=== PATIENT | female | born 1945 | race Native Hawaiian/Other Pacific Islander ===

== ENCOUNTER 2017-04-21 21:26 | Emergency (ER) | payer MEDICARE, OTHER ==
[2017-04-21] MEDS ORDERED: MORPHINE SULFATE 4 MG/ML SYRINGE IV STA (21:46)
--- NOTE | 2017-04-21 21:54 | ED ---
Abdominal Pain HPI - General Chief Complaint: Chest Pain Stated Complaint: SOB/Back & Abdominal Pain Time Seen by Provider: 04/21/17 21:37 Source: patient Mode of arrival: wheelchair Limitations: no limitations - History of Present Illness Initial Comments: This patient is a 71-year-old woman who presents with pain to the left flank that came on she states probably about 5-6 hours ago. She states that it has become severe now. It does radiate around to her left upper quadrant. She states that the pain seems to be better if she remains still but it gets worse if she presses on the areas or if she moves. Also sometimes worse with taking a deep breath. The patient states she had a similar episode about 2 years ago, the pain lasted for about 12 hours and resolved spontaneously. She did not see anyone about this. She denies any related symptoms. MD Complaint: flank pain -: hour(s) Location: L flank Radiation: LUQ Migration to: no migration Severity: severe Quality: aching Consistency: constant Improves With: nothing Worsens With: movement, other (Palpation) - Related Data Home Medications Medication Instructions Recorded Confirmed Aspirin 81 mg PO DAILY 01/31/14 04/21/17 Cholecalciferol [Vitamin D3] 1,000 unit PO DAILY 01/31/14 04/21/17 Enalapril Maleate 10 mg PO DAILY 01/31/14 04/21/17 Levothyroxine Sodium [Synthroid] 50 mcg PO DAILY 01/31/14 04/21/17 Nitroglycerin Sl Tabs [Nitrostat] 0.4 mg PO DIRECTED PRN 01/31/14 04/21/17 Ranitidine HCl 150 mg PO BID 01/31/14 04/21/17 Albuterol Sulfate [Proair Hfa] 2 puff INHALATION Q4HR PRN 02/02/14 04/21/17 Clopidogrel [Plavix] 75 mg PO DAILY 05/21/14 04/21/17 Metoprolol Tartrate [Lopressor] 50 mg PO BID 05/21/14 04/21/17 Simvastatin [Zocor] 20 mg PO HS 05/21/14 04/21/17 Previous Rx's Medication Instructions Recorded Isosorbide Mononitrate ER [Imdur] 30 mg PO HS #30 tab.er.24h 02/03/14 Cyclobenzaprine [Flexeril] 10 mg PO TID #20 tab 05/21/14 Ibuprofen [Motrin] 600 mg PO Q6HR PRN #20 tab 05/21/14 Albuterol Inhaler [Ventolin Hfa 2 puff INHALATION Q4HR PRN #1 07/08/14 Inhaler] inhaler Azithromycin [Zithromax Z-pack] 250 mg PO DIRECTED #6 tab 07/08/14 Ibuprofen [Motrin] 600 mg PO Q8HR PRN #20 tab 04/21/17 Methocarbamol [Robaxin-750] 750 mg PO TID PRN #30 tablet 04/21/17 Allergies Allergy/AdvReac Type Severity Reaction Status Date / Time No Known Allergies Allergy Verified 04/21/17 23:11 Review of Systems ROS Statement: Those systems with pertinent positive or pertinent negative responses have been documented in the HPI. ROS Other: All systems not noted in ROS Statement are negative. Constitutional: Denies: fever, chills Respiratory: Denies: cough, dyspnea, hemoptysis Cardiovascular: Denies: chest pain, palpitations, dyspnea on exertion, orthopnea Gastrointestinal: Reports: as per HPI, abdominal pain. Denies: nausea, vomiting , diarrhea, constipation, melena, hematochezia Genitourinary: Denies: dysuria, hematuria Musculoskeletal: Denies: back pain Skin: Denies: rash Neurological: Denies: headache, weakness, numbness Past Medical History Past Medical History: Coronary Artery Disease (CAD), Chest Pain / Angina, Hyperlipidemia, Hypertension, Myocardial Infarction ([place]) History of Any Multi-Drug Resistant Organisms: None Reported Past Surgical History: Heart Catheterization With Stent, Hysterectomy Past Psychological History: No Psychological Hx Reported Smoking Status: Former smoker Past Alcohol Use History: None Reported Past Drug Use History: None Reported General Exam Limitations: no limitations General appearance: alert, in no apparent distress Head exam: Present: atraumatic, normocephalic Eye exam: Present: normal appearance. Absent: scleral icterus, conjunctival injection ENT exam: Present: normal oropharynx Neck exam: Present: normal inspection Respiratory exam: Present: normal lung sounds bilaterally. Absent: respiratory distress, wheezes, rales, rhonchi, stridor, chest wall tenderness, decreased breath sounds Cardiovascular Exam: Present: regular rate, normal rhythm, normal heart sounds. Absent: systolic murmur, diastolic murmur, rubs, gallop GI/Abdominal exam: Present: soft, tenderness (Left upper quadrant), normal bowel sounds. Absent: distended, guarding, rebound, rigid, mass, pulsatile mass , hernia Extremities exam: Present: normal inspection, normal capillary refill. Absent: pedal edema, calf tenderness Back exam: Present: normal inspection, paraspinal tenderness (Patient has tenderness to the back and the left paraspinal area, probably from around T8-T12 ). Absent: CVA tenderness (R), CVA tenderness (L), vertebral tenderness Neurological exam: Present: alert Skin exam: Present: warm, dry, intact, normal color. Absent: rash Course Vital Signs 04/21/17 04/21/17 21:27 22:45 Temperature 98.7 F Pulse Rate 85 88 Respiratory 18 16 Rate Blood Pressure 168/79 156/73 O2 Sat by Pulse 99 96 Oximetry Medical Decision Making - Lab Data Result diagrams: 04/21/17 21:35 04/21/17 21:35 Lab Results 04/21/17 04/21/17 04/21/17 Range/Units 21:35 21:35 21:35 WBC 7.5 (3.8-10.6) k/uL RBC 4.52 (3.80-5.40) m/uL Hgb 13.3 (11.4-16.0) gm/dL Hct 39.7 (34.0-46.0) % MCV 87.8 (80.0-100.0) fL MCH 29.3 (25.0-35.0) pg MCHC 33.4 (31.0-37.0) g/dL RDW 13.4 (11.5-15.5) % Plt Count 273 (150-450) k/uL Neutrophils % 60 % Lymphocytes % 28 % Monocytes % 6 % Eosinophils % 3 % Basophils % 1 % Neutrophils # 4.5 (1.3-7.7) k/uL Lymphocytes # 2.1 (1.0-4.8) k/uL Monocytes # 0.5 (0-1.0) k/uL Eosinophils # 0.2 (0-0.7) k/uL Basophils # 0.1 (0-0.2) k/uL D-Dimer 0.62 H (<0.60) mg/L FEU Sodium 138 (137-145) mmol/L Potassium 4.3 (3.5-5.1) mmol/L Chloride 101 (98-107) mmol/L Carbon Dioxide 28 (22-30) mmol/L Anion Gap 9 mmol/L BUN 16 (7-17) mg/dL Creatinine 0.85 (0.52-1.04) mg/dL Est GFR (MDRD) Af Amer >60 (>60 ml/min/1.73 sqM) Est GFR (MDRD) Non-Af >60 (>60 ml/min/1.73 sqM) Glucose 110 H (74-99) mg/dL Calcium 9.1 (8.4-10.2) mg/dL Magnesium 1.7 (1.6-2.3) mg/dL Total Bilirubin 0.3 (0.2-1.3) mg/dL AST 22 (14-36) U/L ALT 29 (9-52) U/L Alkaline Phosphatase 62 (38-126) U/L Troponin I (0.000-0.034) ng/mL Total Protein 6.9 (6.3-8.2) g/dL Albumin 3.9 (3.5-5.0) g/dL Amylase 63 (30-110) U/L Lipase 130 (23-300) U/L Urine Color Urine Appearance (Clear) Urine pH (5.0-8.0) Ur Specific [place] (1.001-1.035) Urine Protein (Negative) Urine Glucose (UA) (Negative) Urine Ketones (Negative) Urine Blood (Negative) Urine Nitrite (Negative) Urine Bilirubin (Negative) Urine Urobilinogen (<2.0) mg/dL Ur Leukocyte Esterase (Negative) 04/21/17 04/21/17 Range/Units 21:35 22:40 WBC (3.8-10.6) k/uL RBC (3.80-5.40) m/uL Hgb (11.4-16.0) gm/dL Hct (34.0-46.0) % MCV (80.0-100.0) fL MCH (25.0-35.0) pg MCHC (31.0-37.0) g/dL RDW (11.5-15.5) % Plt Count (150-450) k/uL Neutrophils % % Lymphocytes % % Monocytes % % Eosinophils % % Basophils % % Neutrophils # (1.3-7.7) k/uL Lymphocytes # (1.0-4.8) k/uL Monocytes # (0-1.0) k/uL Eosinophils # (0-0.7) k/uL Basophils # (0-0.2) k/uL D-Dimer (<0.60) mg/L FEU Sodium (137-145) mmol/L Potassium (3.5-5.1) mmol/L Chloride (98-107) mmol/L Carbon Dioxide (22-30) mmol/L Anion Gap mmol/L BUN (7-17) mg/dL Creatinine (0.52-1.04) mg/dL Est GFR (MDRD) Af Amer (>60 ml/min/1.73 sqM) Est GFR (MDRD) Non-Af (>60 ml/min/1.73 sqM) Glucose (74-99) mg/dL Calcium (8.4-10.2) mg/dL Magnesium (1.6-2.3) mg/dL Total Bilirubin (0.2-1.3) mg/dL AST (14-36) U/L ALT (9-52) U/L Alkaline Phosphatase (38-126) U/L Troponin I <0.012 (0.000-0.034) ng/mL Total Protein (6.3-8.2) g/dL Albumin (3.5-5.0) g/dL Amylase (30-110) U/L Lipase (23-300) U/L Urine Color Light Yellow Urine Appearance Clear (Clear) Urine pH 7.5 (5.0-8.0) Ur Specific [place] 1.008 (1.001-1.035) Urine Protein Negative (Negative) Urine Glucose (UA) Negative (Negative) Urine Ketones Negative (Negative) Urine Blood Negative (Negative) Urine Nitrite Negative (Negative) Urine Bilirubin Negative (Negative) Urine Urobilinogen <2.0 (<2.0) mg/dL Ur Leukocyte Esterase Negative (Negative) - EKG Data -: EKG Interpreted by Id EKG shows normal: sinus rhythm, axis (Normal), intervals (Normal), ST-T waves ( Normal) Rate: bradycardia (Rate approximately 57 bpm) Interpretation: other (Possible old inferior infarct.) Disposition Clinical Impression: Back pain Disposition: HOME SELF-CARE Condition: Fair Instructions: Back Pain (ED) Prescriptions: Ibuprofen [Motrin] 600 mg PO Q8HR PRN #20 tab PRN Reason: Pain Methocarbamol [Robaxin-750] 750 mg PO TID PRN #30 tablet PRN Reason: pain Referrals: None,Stated [Primary Care Provider] - 1-2 days
[2017-04-21 22:14] LABS: Basophils # (A) 0.1 k/uL (0-0.2); Basophils % (A) 1 %; CHCM 34.3; Eosinophils # (A) 0.2 k/uL (0-0.7); Eosinophils % (A) 3 %; HCT 39.7 % (34.0-46.0); HDW 2.37; HGB 13.3 gm/dL (11.4-16.0); Luc # (Auto) 0.14; Luc % (Auto) 2; Lymphocytes # (A) 2.1 k/uL (1.0-4.8); Lymphocytes % (A) 28 %; MCH 29.3 pg (25.0-35.0); MCHC 33.4 g/dL (31.0-37.0); MCV 87.8 fL (80.0-100.0); Mean Platelet Volume 7.7; Monocytes # (A) 0.5 k/uL (0-1.0); Monocytes % (A) 6 %; Neutrophils # (A) 4.5 k/uL (1.3-7.7); Neutrophils % (A) 60 %; RBC 4.52 m/uL (3.80-5.40); RDW 13.4 % (11.5-15.5); WBC 7.5 k/uL (3.8-10.6); WBC (Perox) 7.23
[2017-04-21 22:22] LABS: ALT 29 U/L (9-52); AST 22 U/L (14-36); Alkaline Phosphatase 62 U/L (38-126); Amylase 63 U/L (30-110); Anion Gap 9 mmol/L; Blood Urea Nitrogen 16 mg/dL (7-17); Calcium 9.1 mg/dL (8.4-10.2); Carbon Dioxide 28 mmol/L (22-30); Chloride 101 mmol/L (98-107); Glucose 110 mg/dL (74-99); Magnesium 1.7 mg/dL (1.6-2.3); Non-African American GFR(MDRD) >60 (>60 ml/min/1.73 sqM); Potassium 4.3 mmol/L (3.5-5.1); Sodium 138 mmol/L (137-145); Total Bilirubin 0.3 mg/dL (0.2-1.3); Total Protein 6.9 g/dL (6.3-8.2)
[2017-04-21] MEDS ORDERED: RX INFO: IV CONTRAST WAS GIVEN 1 EACH MISC MISCELLANE PRN (22:42)
[2017-04-21 22:49] LABS: Appearance,Urine Clear (Clear); Bilirubin,Urine Negative (Negative); Glucose,Urine (UA) Negative (Negative); Ketones,Urine Negative (Negative); Leukocyte Esterase,Urine Negative (Negative); Nitrite,Urine Negative (Negative); PH, Urine 7.5 (5.0-8.0); Protein,Urine Negative (Negative); Specific Gravity,Urine 1.008 (1.001-1.035); UA Billing (MACRO vs. MICRO) CHEM; Urobilinogen,Urine <2.0 mg/dL (<2.0)
[2017-04-21 22:56] VITALS: RESP 16
--- NOTE | 2017-04-21 23:32 | CT ---
ADDENDUM - Added by Billy Molina MD on 04/21/2017 11:50 PM (-04:00) CTDI is 60.40 mGy and DLP is 408.10 mGy-cm. EXAM: CT Angiography Chest With Intravenous Contrast CLINICAL HISTORY: Reason: Pain TECHNIQUE: Axial computed tomographic angiography images of the chest with intravenous contrast using pulmonary embolism protocol. CTDI is mGy and DLP is mGy-cm. This CT exam was performed using one or more of the following dose reduction techniques: automated exposure control, adjustment of the mA and/or kV according to patient size, and/or use of iterative reconstruction technique. MIP reconstructed images were created and reviewed. COMPARISON: 07/08/2014 FINDINGS: Pulmonary arteries: Unremarkable. No pulmonary embolism. Aorta: No acute findings. No thoracic aortic aneurysm. Lungs: Multiple subcentimeter nodular opacities in the peripheral right middle and upper lobes. Bibasilar atelectasis. Parenchymal scarring in the left lower lobe. Pleural space: Unremarkable. No significant effusion. No pneumothorax. Heart: Unremarkable. No cardiomegaly. No significant pericardial effusion. No evidence of RV dysfunction. Mediastinum: Small hiatal hernia. Bones/joints: No acute fracture. No dislocation. Soft tissues: Unremarkable. Lymph nodes: A few calcified mediastinal lymph nodes are likely related to prior granulomatous disease. IMPRESSION: No evidence of pulmonary embolus. Subcentimeter nodular opacities in the peripheral right middle and upper lobes, favor infectious or inflammatory etiology. Recommend follow-up CT in 3 months after treatment.
[2017-04-22 00:04] VITALS: BP 152/78; PULSE 62; TEMP 98
== END 2017-04-22 00:20 | disposition home or self-care (01) ==
LOC: EC 21:26
DX: M54.9 Dorsalgia, unspecified (principal); R07.9 Chest pain, unspecified; R10.12 Left upper quadrant pain; I10 Essential (primary) hypertension; I25.2 Old myocardial infarction; I25.10 Atherosclerotic heart disease of native coronary artery without angina pectoris; E87.5 Hyperkalemia; Z95.5 Presence of coronary angioplasty implant and graft; Z87.891 Personal history of nicotine dependence; Z79.02 Long term (current) use of antithrombotics/antiplatelets; Z79.82 Long term (current) use of aspirin; Z79.899 Other long term (current) drug therapy
CPT/HCPCS: 99285 ×2; 96374 ×2; 36415; 93005; 85379; 80053; 82150; 83690; 83735; 84484; 85025; 81003; 71275; J2270; Q9967

== ENCOUNTER → 2017-04-30 | Outpatient (CLI) | payer MEDICARE, OTHER ==
--- NOTE | 2017-05-03 08:53 | MM ---
Reason for exam: screening (asymptomatic). Last mammogram was performed 1 year and 4 months ago. History: Patient is postmenopausal. Family history of premenopausal breast cancer in sister. Physical Findings: A clinical breast exam by your physician is recommended on an annual basis and results should be correlated with mammographic findings. MG 3D Screening Mammo W/Cad Bilateral CC and MLO view(s) were taken. Prior study comparison: January 06, 2016, bilateral MG 3d screening mammo w/cad. January 04, 2015, bilateral MG screening mammo w CAD. July 18, 2013, bilateral digital screening mammo w/CAD. There are scattered fibroglandular densities. No suspicious abnormality. ASSESSMENT: Negative, BI-RAD 1 RECOMMENDATION: Routine screening mammogram of both breasts in 1 year.
== END | disposition home or self-care (01) ==
LOC: RADMAMWWP 08:52
PROVIDERS: ATTEND Family Medicine
DX: Z12.31 Encounter for screening mammogram for malignant neoplasm of breast (principal); Z80.3 Family history of malignant neoplasm of breast
CPT/HCPCS: 77063; G0202

== ENCOUNTER 2017-05-24 11:24 | Day surgery (SDC) | payer MEDICARE, OTHER ==
[2017-05-21 12:20] VITALS: BMI 20.1
[~2017-05-24 11:24] MED LIST: LACTATED RINGERS 1,000 ML IV SCH
[2017-05-24 11:52] VITALS: RESP 18; TEMP 97.8
[2017-05-24] MEDS ORDERED: LIDOCAINE 1% 20 ML VIAL (10MG/ML) FOR IV START INTRADERMA ONE (12:01)
[2017-05-24] MEDS ORDERED: LIDOCAINE 1% INJ 10MG/ML (20 ML MDV) ONE (12:41)
[2017-05-24] MEDS ORDERED: PROPOFOL 10 MG/ML 20 ML VIAL IV ONE (12:41)
--- NOTE | 2017-05-24 13:22 | P.PCN ---
Date of Procedure: 05/24/17 Procedure(s) Performed: Procedure: Esophagogastroduodenoscopy and biopsy. Preoperative diagnosis: Dysphagia. Postoperative diagnosis: 1. Sliding hiatal hernia with no obvious esophagitis or complicated reflux disease. 2. Mild gastritis and duodenitis. 3. Multiple biopsies obtained from the duodenum, antrum and esophagus. Preparation and sedation: Was provided by anesthesia. Brief clinical history: The patient is a 71-year-old female who I have recently evaluated in the office regarding dysphagia of around 1 month duration. Denied reflux symptoms in the past, although, she has been having some heartburn lately. No weight loss, bleeding or anemia. This evaluation is to assess for esophagitis, complicated reflux disease. There other pathology. Procedure: With the patient on her left lateral decubitus position and after informed consent and adequate sedation, I passed the Olympus-GIF 160 video upper endoscope through the cricopharyngeus down the esophagus. GE junction was around 36 cm from the incisors and there was a sliding hiatal hernia measuring around 2 cm. The esophagus did not show any obvious erosions, ulcers , strictures or Guadarrama's esophagus. The endoscope was then passed into the stomach which was insufflated with air and inspected in detail including the retroflex view in the cardia. Finally, the endoscope was passed through the pylorus into the duodenum. Pyloric channel did not show any ulcers. Duodenal bulb, post bulbar area and descending duodenum as well as the antrum showed some mottling and erythema consistent with mild gastritis and duodenitis with no ulcers or bleeding. I obtained biopsies from the duodenum, antrum and esophagus then the endoscope was withdrawn. The patient tolerated the procedure well. Plan: The patient was reassured. Will await biopsy results. I will make additional recommendations based on her course and biopsy results. I will keep you updated on her progress.
[2017-05-24 13:29] VITALS: BP 109/68; PULSE 45
== END 2017-05-24 14:17 | disposition home or self-care (01) ==
LOC: ORWHC2ENDO 11:24
DX: K29.50 Unspecified chronic gastritis without bleeding (principal); K20.0 Eosinophilic esophagitis; K29.80 Duodenitis without bleeding; K44.9 Diaphragmatic hernia without obstruction or gangrene; I10 Essential (primary) hypertension; E78.5 Hyperlipidemia, unspecified; I25.10 Atherosclerotic heart disease of native coronary artery without angina pectoris; Z79.1 Long term (current) use of non-steroidal anti-inflammatories (NSAID); Z79.82 Long term (current) use of aspirin; Z79.899 Other long term (current) drug therapy
CPT/HCPCS: 88305; 88342; 43239; J2001; J2704

== ENCOUNTER 2020-05-16 12:09 | Emergency (ER) | payer MEDICARE, OTHER ==
[2020-05-16] MEDS ORDERED: KETOROLAC 15 MG/ML 1 ML VIAL IVP STA (12:28)
--- NOTE | 2020-05-16 12:39 | ED ---
Chest Pain HPI - General Chief Complaint: Chest Pain Stated Complaint: Chest Pain, Heart Palps Time Seen by Provider: 05/16/20 12:19 Source: patient, RN notes reviewed, old records reviewed Mode of arrival: ambulatory Limitations: no limitations - History of Present Illness Initial Comments: This is a 74-year-old female history of heart disease history of hypertension who currently is wearing a heart monitor who presents with complaints of the onset this morning of retrosternal chest pain on the left it does seem to get increase with movements no fevers chills nausea vomiting sweats reported. He feels different than her previous heart events. She denies any trauma heavy lifting or any other symptoms or is elevated at this time. The patient co mplains some pain to her left nipple on her breast. She voices this is part of the area where it hurts. No evidence of any tenderness on examination evidence of any discharge or drainage MD Complaint: chest pain - Related Data Home Medications Medication Instructions Recorded Confirmed Aspirin 81 mg PO DAILY 01/31/14 05/21/17 Enalapril [Vasotec] 5 mg PO DAILY 05/21/17 05/21/17 Metoprolol Tartrate 25 mg PO DAILY 05/21/17 05/21/17 Naproxen 500 mg PO DAILY 05/21/17 05/21/17 Simvastatin 40 mg PO DAILY 05/21/17 05/21/17 Previous Rx's Medication Instructions Recorded Ibuprofen 800 mg PO Q6HR PRN #20 tablet 05/16/20 Allergies Allergy/AdvReac Type Severity Reaction Status Date / Time No Known Allergies Allergy Verified 05/21/17 12:13 Review of Systems ROS Statement: Those systems with pertinent positive or pertinent negative responses have been documented in the HPI. ROS Other: All systems not noted in ROS Statement are negative. EKG Findings - EKG Results: EKG: interpreted by ERMD, sinus rhythm (Normal sinus rhythm of 66 AK interval 120 QRS duration 74 QT since QTC 392/410 evidence of old inferior changes. This is compared with EKG dated 04/20/17 showing identical configuration.) Past Medical History Past Medical History: Coronary Artery Disease (CAD), Chest Pain / Angina, Hyperlipidemia, Hypertension, Myocardial Infarction ([place]) Additional Past Medical History / Comment(s): PATIENT UNSURE IF HAD HI OR NOT, History of Any Multi-Drug Resistant Organisms: None Reported Past Surgical History: Heart Catheterization, Hysterectomy Additional Past Surgical History / Comment(s): PER HX NO HEART STENT PLACED Past Anesthesia/Blood Transfusion Reactions: No Reported Reaction Past Psychological History: No Psychological Hx Reported Smoking Status: Never smoker Past Alcohol Use History: None Reported Past Drug Use History: None Reported General Exam - General Exam Comments Initial Comments: This is a well-developed well-nourished awake alert oriented 3 female Limitations: no limitations General appearance: alert, in no apparent distress, anxious Head exam: Present: atraumatic, normocephalic, normal inspection Eye exam: Present: normal appearance, PERRL, EOMI. Absent: scleral icterus, conjunctival injection, periorbital swelling ENT exam: Present: normal exam, mucous membranes moist Neck exam: Present: normal inspection. Absent: tenderness, meningismus, lymphadenopathy Respiratory exam: Present: normal lung sounds bilaterally, chest wall tenderness (Reproducible tenderness palpation of the left costal sternal margin. No step- off no crepitation. Examination left breast is unremarkable). Absent: respiratory distress, wheezes, rales, rhonchi, stridor Cardiovascular Exam: Present: regular rate, normal rhythm, normal heart sounds. Absent: systolic murmur, diastolic murmur, rubs, gallop, clicks GI/Abdominal exam: Present: soft, normal bowel sounds. Absent: distended, tenderness, guarding, rebound, rigid Extremities exam: Present: normal inspection, full ROM, normal capillary refill. Absent: tenderness, pedal edema, joint swelling, calf tenderness Back exam: Present: normal inspection Neurological exam: Present: alert, oriented X3, CN II-XII intact Psychiatric exam: Present: normal affect, normal mood Skin exam: Present: warm, dry, intact, normal color. Absent: rash Course Vital Signs 05/16/20 12:13 Temperature 98.2 F Pulse Rate 87 Respiratory 19 Rate Blood Pressure 156/92 O2 Sat by Pulse 98 Oximetry Chest Pain MDM - MDM I did review the imaging and report no acute findings. I did reevaluate the patient she has improvement in her pain I did reexamine the patient's left breast that she complains some nipple discomfort. No palpable masses no evidence of erythema or discharge at this time she'll just observe this. She will follow-up with Dr. chavez when necessary the presentation is consistent with costochondritis. Patient will be placed on a short course of anti- inflammatories. Disposition Clinical Impression: Costochondritis, Chest wall syndrome Disposition: HOME SELF-CARE Condition: Good Instructions (If sedation given, give patient instructions): Costochondritis (ED) Additional Instructions: Prescription sent to Your preferred pharmacy Prescriptions: Ibuprofen 800 mg PO Q6HR PRN #20 tablet PRN Reason: Pain Is patient prescribed a controlled substance at d/c from ED?: No Referrals: Anshul Arnold MD [Primary Care Provider] - 1-2 days
[2020-05-16 12:46] LABS: Basophils # (A) 0.1 k/uL (0-0.2); Basophils % (A) 1 %; Eosinophils # (A) 0.2 k/uL (0-0.7); Eosinophils % (A) 2 %; HCT 41.5 % (34.0-46.0); HGB 13.7 gm/dL (11.4-16.0); Lymphocytes # (A) 2.9 k/uL (1.0-4.8); Lymphocytes % (A) 39 %; MCH 28.9 pg (25.0-35.0); MCHC 32.9 g/dL (31.0-37.0); MCV 87.8 fL (80.0-100.0); Mean Platelet Volume 7.9; Monocytes # (A) 0.5 k/uL (0-1.0); Monocytes % (A) 6 %; Neutrophils # (A) 3.7 k/uL (1.3-7.7); Neutrophils % (A) 50 %; Platelet Count 291 k/uL (150-450); RBC 4.73 m/uL (3.80-5.40); WBC 7.4 k/uL (3.8-10.6)
[2020-05-16 12:58] LABS: ALT 12 U/L (4-34); AST 25 U/L (14-36); African American GFR (CKD) >90 (>60 ml/min/1.73 sqM); Albumin 4.5 g/dL (3.5-5.0); Alkaline Phosphatase 65 U/L (38-126); Anion Gap 9 mmol/L; Blood Urea Nitrogen 15 mg/dL (7-17); Calcium 9.7 mg/dL (8.4-10.2); Carbon Dioxide 25 mmol/L (22-30); Chloride 102 mmol/L (98-107); Creatine Kinase 92 U/L (30-135); Glucose 107 mg/dL (74-99); Magnesium 1.8 mg/dL (1.6-2.3); Non-African American GFR(CKD) 86 (>60 ml/min/1.73 sqM); Potassium 4.2 mmol/L (3.5-5.1); Sodium 136 mmol/L (137-145); Total Bilirubin 0.4 mg/dL (0.2-1.3); Total Protein 7.5 g/dL (6.3-8.2)
--- NOTE | 2020-05-16 13:06 | XR ---
EXAMINATION TYPE: XR chest 2V DATE OF EXAM: 05/16/2020 COMPARISON: Chest x-ray and CT chest July 08, 2014 HISTORY: Chest pain. TECHNIQUE: Frontal and lateral views of the chest are obtained. FINDINGS: There is some persistent or recurrent retrocardiac consolidation/atelectasis. Right lung r emains clear. No pleural effusion or pneumothorax is seen bilaterally.. The cardiac silhouette size remains within normal limits. Overlying loop recorder is noted. The osseous structures are intact. IMPRESSION: Persistent or recurrent retrocardiac atelectasis and/or consolidation. No new infiltrate is seen.
[2020-05-16 13:13] LABS: D-Dimer 0.52 mg/L FEU (<0.60); INR 0.9 (<1.2); Prothrombin Time 9.5 sec (9.0-12.0)
[2020-05-16 13:52] VITALS: BP 138/79; PULSE 62; RESP 18; TEMP 98
== END 2020-05-16 13:52 | disposition home or self-care (01) ==
LOC: EC 12:09
DX: R07.89 Other chest pain (principal); R00.2 Palpitations; I25.119 Atherosclerotic heart disease of native coronary artery with unspecified angina pectoris; I10 Essential (primary) hypertension; E78.5 Hyperlipidemia, unspecified; I25.2 Old myocardial infarction; Z79.82 Long term (current) use of aspirin; Z79.899 Other long term (current) drug therapy
CPT/HCPCS: 36415; 93005; 85379; 83880; 80053; 82550; 83735; 84484; 85025; 85610; 85730; 71046; 99285; 96374; J1885

== ENCOUNTER 2020-06-03 21:06 | Observation (INO) | payer MEDICARE, OTHER ==
--- NOTE | 2020-06-03 21:54 | XR ---
EXAMINATION TYPE: XR chest 2V DATE OF EXAM: 06/03/2020 COMPARISON: 05/16/2020 HISTORY: Chest pain TECHNIQUE: FINDINGS: Heart and mediastinum are normal. Lungs are clear. Diaphragm is normal. Bony thorax appears normal. IMPRESSION: Normal chest. No change.
[2020-06-03 22:09] LABS: Basophils # (A) 0.1 k/uL (0-0.2); Basophils % (A) 1 %; Eosinophils # (A) 0.2 k/uL (0-0.7); Eosinophils % (A) 4 %; HCT 39.1 % (34.0-46.0); Lymphocytes # (A) 2.3 k/uL (1.0-4.8); Lymphocytes % (A) 45 %; MCH 28.9 pg (25.0-35.0); MCHC 33.2 g/dL (31.0-37.0); MCV 87.2 fL (80.0-100.0); Mean Platelet Volume 8.2; Monocytes # (A) 0.3 k/uL (0-1.0); Monocytes % (A) 6 %; Neutrophils # (A) 2.2 k/uL (1.3-7.7); Neutrophils % (A) 43 %; Platelet Count 257 k/uL (150-450); RBC 4.48 m/uL (3.80-5.40); WBC 5.2 k/uL (3.8-10.6)
[2020-06-03 22:17] LABS: Albumin 4.3 g/dL (3.5-5.0); Calcium 9.2 mg/dL (8.4-10.2); Magnesium 1.8 mg/dL (1.6-2.3); Total Bilirubin 0.4 mg/dL (0.2-1.3); Total Protein 7.1 g/dL (6.3-8.2)
[2020-06-03 22:24] LABS: INR 0.9 (<1.2); Partial Thromboplastin Time 25.3 sec (22.0-30.0); Prothrombin Time 9.5 sec (9.0-12.0)
[2020-06-03] MEDS ORDERED: MORPHINE SULFATE 4 MG/ML SYRINGE IVP STA (23:23)
[2020-06-03] MEDS ORDERED: NITROGLYCERIN SL TABS 0.4 MG TAB SUBLINGUAL PRN (23:24)
--- NOTE | 2020-06-03 23:31 | ED ---
Chest Pain HPI - General Chief Complaint: Chest Pain Stated Complaint: L Arm Pain, Chest Pain Time Seen by Provider: 06/03/20 21:31 Source: patient Mode of arrival: wheelchair Limitations: no limitations - History of Present Illness Initial Comments: Leila Is a 74-year-old female with a history of CAD status post stenting in the past 2 presents the ER today for evaluation of sudden onset of stabbing left-sided chest pain, lightheadedness, diaphoresis and pain radiating the left shoulder. Patient reports she was in her usual state of health throughout the day today, this evening she had sudden onset of feeling weak all over lightheaded got sweaty and short of breath and had a stabbing pain that she describes as heart pain. Patient reports this was worse than any heart attack she's ever had. Pain resolved prior to arrival she did take aspirin earlier today. - Related Data Home Medications Medication Instructions Recorded Confirmed Aspirin 81 mg PO DAILY 01/31/14 05/21/17 Enalapril [Vasotec] 5 mg PO DAILY 05/21/17 05/21/17 Metoprolol Tartrate 25 mg PO DAILY 05/21/17 05/21/17 Naproxen 500 mg PO DAILY 05/21/17 05/21/17 Simvastatin 40 mg PO DAILY 05/21/17 05/21/17 Previous Rx's Medication Instructions Recorded Ibuprofen 800 mg PO Q6HR PRN #20 tablet 05/16/20 Allergies Allergy/AdvReac Type Severity Reaction Status Date / Time No Known Allergies Allergy Verified 06/03/20 21:14 Review of Systems ROS Statement: Those systems with pertinent positive or pertinent negative responses have been documented in the HPI. ROS Other: All systems not noted in ROS Statement are negative. EKG Findings - EKG Comments: EKG Findings:: EKG was obtained due to complaint of chest pain, EKG was obtained at 2129, rate is 61 rhythm is sinus, normal axis, normal intervals, ID 124, QRS 82, QTC [address] elevations or depressions no evidence of acute ischemia or infarction Past Medical History Past Medical History: Coronary Artery Disease (CAD), Chest Pain / Angina, Hyperlipidemia, Hypertension, Myocardial Infarction ([place]) Additional Past Medical History / Comment(s): PATIENT UNSURE IF HAD [place] History of Any Multi-Drug Resistant Organisms: None Reported Past Surgical History: Heart Catheterization, Hysterectomy Additional Past Surgical History / Comment(s): PER HX NO HEART STENT PLACED Past Anesthesia/Blood Transfusion Reactions: No Reported Reaction Past Psychological History: No Psychological Hx Reported Smoking Status: Never smoker Past Alcohol Use History: None Reported Past Drug Use History: None Reported General Exam - General Exam Comments Initial Comments: Physical Exam GENERAL: Patient is well-developed and well-nourished. Patient is nontoxic and well- hydrated and is in no distress. HENT: Normocephalic, Atraumatic. EYES: PERRL, EOMI PULMONARY: Unlabored respirations. No audible rales rhonchi or wheezing was noted. CARDIOVASCULAR: There is a regular rate and rhythm without any murmurs gallops or rubs. ABDOMEN: Soft and nontender with normal bowel sounds. SKIN: Skin is clear with no lesions or rashes and otherwise unremarkable. : Deferred NEUROLOGIC: Patient is alert and oriented x3. Moving all extremities spontaneously MUSCULOSKELETAL: Normal extremities with adequate strength and full range of motion. No lower extremity swelling or edema. No calf tenderness. PSYCHIATRIC: Normal psychiatric evaluation. Limitations: no limitations Course Vital Signs 06/03/20 06/03/20 21:11 22:15 Temperature 98.4 F Pulse Rate 64 62 Respiratory 18 18 Rate Blood Pressure 144/80 119/82 O2 Sat by Pulse 99 98 Oximetry Chest Pain [facility] the patient was seen and evaluated, history is obtained from the patient Patient with a known coronary artery disease history presenting with chest pain concerning for ACS Patient had aspirin prior to arrival and is currently chest pain-free Labs and imaging were ordered EKG is nonischemic, chest x-ray with no acute findings Initial labs are unremarkable however given the patient's history and prescrip tion of the pain I do feel she is high risk for acute coronary syndrome would benefit from admission possible serial troponins and evaluation by cardiology. Condition is agreeable to this. Upon reevaluation patient is complaining of pain in her back from sitting in the ER caught. Morphine was ordered for pain management. Disposition Clinical Impression: Chest pain Disposition: ADMITTED IP TO THIS HOSP Condition: Stable Referrals: Anshul Arnold MD [Primary Care Provider] - 1-2 days
[2020-06-04 05:09] LABS: Cholesterol 106 mg/dL (<200); HDL Cholesterol 42 mg/dL (40-60); LDL Cholesterol,Calculated 48 mg/dL (0-99); Triglycerides 80 mg/dL (<150)
[2020-06-04] MEDS ORDERED: AMINOPHYLLINE 500 MG/20 ML VIAL IV PRN (08:57)
[2020-06-04] MEDS ORDERED: CAFFEINE CITRATE 60 MG/3 ML VIAL IV PRN (08:57)
[2020-06-04] MEDS ORDERED: REGADENOSON 0.4 MG/5 ML SYRINGE IV ONE (08:57)
[2020-06-04] MEDS ORDERED: ASPIRIN 325 MG TAB PO SCH (09:00)
[2020-06-04] MEDS ORDERED: ASPIRIN 81 MG PO SCH (09:00)
[2020-06-04] MEDS ORDERED: lisinopriL 10 MG TAB PO SCH (09:00)
--- NOTE | 2020-06-04 11:13 | P.CRDCN ---
History of Present Illness History of present illness: HISTORY OF PRESENTING ILLNESS This is a pleasant 74-year-old female past medical history significant for coronary artery disease, inferior wall myocardial infarction 2001, hypertension and dyslipidemia. She follows in the office with Dr. Arnold. In 2001 she had an inferior wall myocardial infarction and underwent stenting of the mid RCA. She underwent repeat cardiac catheterization in 2013 revealing a total occlusion of the RCA with 30% disease noted in the circumflex artery. At that time she underwent successful PCI of the RCA. We have been asked to see in consultation for chest pain. She states last night while sitting down she felt a sharp pain in the left precordial region that was. Brief in nature and associated with feeling mildly lightheaded. She states the pain was very sharp in nature and not similar to how she felt when she had her heart attack in 2001. She had some mild associated dizziness like the room was spinning and also felt mildly diaphoretic. She had no loss of consciousness or near syncope. She denies shortness of breath or palpitations. Most recent stress test performed in the office was a Lexiscan stress test in August 2018 that was negative for reversible ischemia. Most recent echocardiogram obtained March 2020 revealed preserved LV systolic function with ejection fraction 55%, mild eccentric LVH, mild MR and mild TR noted. DIAGNOSTICS EKG reveals sinus mechanism with nonspecific abnormalities noted in the inferior leads with no acute ischemic changes. Chest xray negative for an acute cardiopulmonary process. Laboratory reviewed, CBC unremarkable, sodium 136, potassium 4.0, creatinine 0.77, magnesium 1.8, cardiac enzymes negative 3, NT proBNP 44, LDL 48 and HDL 42. Current cardiac medications include aspirin 81 mg daily, lisinopril 10 mg daily and simvastatin 40 mg at bedtime. REVIEW OF SYSTEMS At the time of my exam: CONSTITUTIONAL: Denies fever or chills. CARDIOVASCULAR: Denies chest pain, shortness of breath, orthopnea, PND or palpitations. RESPIRATORY: Denies cough. GASTROINTESTINAL: Denies abdominal pain, diarrhea, constipation, nausea or vomiting. MUSCULOSKELETAL: Denies myalgias. NEUROLOGIC: Denies numbness, tingling or weakness. ENDOCRINE: Denies fatigue, weight change, polydipsia or polyurina. GENITOURINARY: Denies burning, hematuria or urgency with micturation. HEMATOLOGIC: Denies history of anemia or bleeding. PHYSICAL EXAMINATION Blood pressure 139/83 heart rate 56 afebrile and maintaining oxygen saturation on room air. CONSTITUTIONAL: No apparent distress. HEENT: Head is normocephalic. Pupils are equal, round. Sclerae anicteric. Mucous membranes of the mouth are moist. No JVD. No carotid bruit. CHEST EXAMINATION: Lungs are clear to auscultation. No chest wall tenderness is noted on palpation or with deep breathing. HEART EXAMINATION: Regular rate and rhythm. S1, S2 heard. No murmurs, gallops or rub. ABDOMEN: Soft, nontender. Positive bowel sounds. EXTREMITIES: 2+ peripheral pulses, no lower extremity edema and no calf tenderness. NEUROLOGIC EXAMINATION: Patient is awake, alert and oriented x3. ASSESSMENT Chest pain, an acute event has been ruled out. Coronary artery disease s/p RCA PCIx2 History of inferior wall IN Hypertension Dyslipidemia Former nicotine dependence PLAN An acute coronary event has been ruled out. Perform Lexiscan stress test to assess for reversible cardiac ischemia. Resume aspirin 81 mg daily, simvastatin 40 mg daily and lisinopril 10 mg daily as previously ordered. Check for orthostatic changes. If stress test is abnormal we will consider coronary angiography. Further recommendations to follow based upon clinical course. Thank you kindly for this consultation. Nurse Practitioner note has been reviewed, I agree with a documented findings and plan of care. Patient was seen and examined. Past Medical History Past Medical History: Coronary Artery Disease (CAD), Chest Pain / Angina, Hyperlipidemia, Hypertension, Myocardial Infarction ([place]) Additional Past Medical History / Comment(s): PATIENT UNSURE IF HAD IN History of Any Multi-Drug Resistant Organisms: None Reported Past Surgical History: Heart Catheterization, Hysterectomy Additional Past Surgical History / Comment(s): PER HX NO HEART STENT PLACED Past Anesthesia/Blood Transfusion Reactions: No Reported Reaction Past Psychological History: No Psychological Hx Reported Smoking Status: Never smoker Past Alcohol Use History: None Reported Past Drug Use History: None Reported Medications and Allergies Home Medications Medication Instructions Recorded Confirmed Type Simvastatin 40 mg PO HS 05/21/17 06/03/20 History Ibuprofen 800 mg PO Q6HR PRN #20 tablet 05/16/20 06/03/20 Rx Albuterol Sulfate [Albuterol 2 puff INHALATION RT-Q6H PRN 06/03/20 06/03/20 History Sulfate Hfa] Diclofenac Sodium [Voltaren Gel] 1 applic TOPICAL BID 06/03/20 06/03/20 History Lisinopril [Prinivil] 10 mg PO DAILY 06/03/20 06/03/20 History Nitroglycerin Sl Tabs [Nitrostat] 0.4 mg SL Q5M PRN 06/03/20 06/03/20 History Omeprazole 20 mg PO DAILY PRN 06/03/20 06/03/20 History metFORMIN HCL [Glucophage] 500 mg PO AC-BID 06/03/20 06/03/20 History Allergies Allergy/AdvReac Type Severity Reaction Status Date / Time No Known Allergies Allergy Verified 06/03/20 21:14 Physical Exam Vitals: Vital Signs Temp Pulse Resp BP Pulse Ox 06/04/20 09:16 56 L 18 139/83 98 06/04/20 07:55 49 L 18 98 06/04/20 06:15 98.4 F 69 19 126/71 97 06/03/20 23:50 57 L 18 138/92 98 06/03/20 22:15 62 18 119/82 98 06/03/20 21:11 98.4 F 64 18 144/80 99 Intake and Output 06/03/20 06/04/20 06/04/20 22:59 06:59 14:59 Other: Weight 81.647 kg Results 06/03/20 22:00 06/03/20 22:00 Cardiac Enzymes 06/03/20 06/03/20 06/04/20 Range/Units 22:00 22:00 01:40 AST 24 (14-36) U/L Troponin I <0.012 <0.012 (0.000-0.034) ng/mL 06/04/20 Range/Units 04:43 AST (14-36) U/L Troponin I <0.012 (0.000-0.034) ng/mL Coagulation 06/03/20 Range/Units 22:00 PT 9.5 (9.0-12.0) sec APTT 25.3 (22.0-30.0) sec Lipids 06/04/20 Range/Units 04:43 Triglycerides 80 (<150) mg/dL Cholesterol 106 (<200) mg/dL HDL Cholesterol 42 (40-60) mg/dL CBC 06/03/20 Range/Units 22:00 WBC 5.2 (3.8-10.6) k/uL RBC 4.48 (3.80-5.40) m/uL Hgb 13.0 (11.4-16.0) gm/dL Hct 39.1 (34.0-46.0) % Plt Count 257 (150-450) k/uL Comprehensive Metabolic Panel 06/03/20 Range/Units 22:00 Sodium 136 L (137-145) mmol/L Potassium 4.0 (3.5-5.1) mmol/L Chloride 104 (98-107) mmol/L Carbon Dioxide 24 (22-30) mmol/L BUN 22 H (7-17) mg/dL Creatinine 0.77 (0.52-1.04) mg/dL Glucose 113 H (74-99) mg/dL Calcium 9.2 (8.4-10.2) mg/dL AST 24 (14-36) U/L ALT 13 (4-34) U/L Alkaline Phosphatase 64 (38-126) U/L Total Protein 7.1 (6.3-8.2) g/dL Albumin 4.3 (3.5-5.0) g/dL Current Medications Generic Name Dose Route Start Last Admin Trade Name Freq PRN Reason Stop Dose Admin Aminophylline 100 mg 06/04/20 08:57 Aminophylline 500 Mg/20 Ml Vial IV 06/04/20 23:00 ONCE PRN Patient Response Aspirin 81 mg 06/04/20 09:00 06/04/20 09:17 Aspirin 81 Mg PO 81 mg DAILY STEPHANIE Administration Caffeine Citrate 60 mg 06/04/20 08:57 Caffeine Citrate 60 Mg/3 Ml Vial IV 06/04/20 23:00 ONCE PRN Patient Response Lisinopril 10 mg 06/04/20 09:00 06/04/20 09:17 Lisinopril 10 Mg Tab PO 10 mg DAILY STEPHANIE Administration Nitroglycerin 0.4 mg 06/03/20 23:24 Nitroglycerin Sl Tabs 0.4 Mg Tab SUBLINGUAL Q5M PRN Chest Pain Intake and Output 06/03/20 06/04/20 06/04/20 22:59 06:59 14:59 Other: Weight 81.647 kg 06/03/20 22:00 06/03/20 22:00
--- NOTE | 2020-06-04 12:37 | NM ---
EXAMINATION TYPE: NM stress lexiscan cardiolite DATE OF EXAM: 06/04/2020 COMPARISON: NONE HISTORY: Chest pain TECHNIQUE: After the intravenous administration of 10.69 mCi Tc 99m Sestamibi - Cardiolite resting S PECT images acquired 90 minutes post injection. The patient received 0.4mg Lexiscan, 26.4 mCi Tc 99m Sestamibi - Stress images obtained [address] injection FINDINGS: Review of stress and rest SPECT images demonstrates mild decreased uptake along the inferior left gregorio tricle on stress as compared to rest images. Gated analysis shows some questionable paradoxical apic al wall motion with an estimated left ventricular ejection fraction of 61 %. IMPRESSION: Pharmacologically induced left ventricular myocardial ischemia, consider echocardiographic correlatio n for wall motion.
[2020-06-04 12:57] VITALS: TEMP 98
[2020-06-04] MEDS ORDERED: ISOSORBIDE MONONITRATE ER 30 MG TAB.ER.24H PO SCH (13:00)
--- NOTE | 2020-06-04 13:13 | EST ---
EXERCISE STRESS AGE: 74 SEX: F HT: 5'5" WT: 180 lbs. PROTOCOL: Lexiscan STAGE: N/A DURATION OF EXERCISE: N/A HEART RATE REST: 54 BLOOD PRESSURE REST: 146/74 MAXIMUM HEART RATE ACHIEVED: 81 MAXIMUM BLOOD PRESSURE: 146/74 85% MPHR: N/A 100% MPHR: N/A METS: N/A INDICATIONS: Chest pain. CLINICAL INFORMATION: Baseline EKG shows sinus rhythm, normal axis, normal intervals. Patient was given intravenous Lexiscan as per protocol. Did not have chest pain or diagnostic ST-segment depression. CONCLUSION: 1. Negative stress test by EKG criteria. 2. Cardiolite portion of the stress test will be reported separately. MMODL / IJN: [id number] /
--- NOTE | 2020-06-04 14:11 | P.PN ---
Progress Note - Text Stress test results discussed with the patient and Dr. Arnold. Given her history and the fact that the stress report revealed a preserved LV function, Dr. Arnold does not believe this to be accurate. He requests that the patient be discharged home on maximum medical therapy and follow up with him in the office on Wednesday. This was explained tot he patient in great detail and she is agreeable with the above stated plan. No beta blockers will be prescribed secondary to resting bradycardia. Nurse in ER updated.
--- NOTE | 2020-06-04 14:21 | P.DS ---
Providers Date of admission: 06/03/20 23:24 Attending physician: Nimco Juarez Consults: 06/03/20 23:24 Consult Physician Urgent Consulting Provider: [facility] Consult Reason/Comments: chest pain, known CAD Do you want consulting provider notified?: Yes, Notify in am Primary care physician: Anshul Arnold MD Hospital Course: As mentioned in HPI Patient Condition at Discharge: Stable Plan - Discharge Summary New Discharge Prescriptions: New Isosorbide Mononitrate ER [Imdur] 30 mg PO DAILY #90 tab.er.24h Continue Simvastatin 40 mg PO HS Ibuprofen 800 mg PO Q6HR PRN #20 tablet PRN Reason: Pain metFORMIN HCL [Glucophage] 500 mg PO AC-BID Nitroglycerin Sl Tabs [Nitrostat] 0.4 mg SL Q5M PRN PRN Reason: Chest Pain Lisinopril [Prinivil] 10 mg PO DAILY Diclofenac Sodium [Voltaren Gel] 1 applic TOPICAL BID Omeprazole 20 mg PO DAILY PRN PRN Reason: Heartburn Albuterol Sulfate [Albuterol Sulfate Hfa] 2 puff INHALATION RT-Q6H PRN PRN Reason: Shortness Of Breath Discharge Medication List Simvastatin 40 mg PO HS 05/21/17 [History] Ibuprofen 800 mg PO Q6HR PRN #20 tablet 05/16/20 [Rx] Albuterol Sulfate [Albuterol Sulfate Hfa] 2 puff INHALATION RT-Q6H PRN 06/03/20 [History] Diclofenac Sodium [Voltaren Gel] 1 applic TOPICAL BID 06/03/20 [History] Lisinopril [Prinivil] 10 mg PO DAILY 06/03/20 [History] Nitroglycerin Sl Tabs [Nitrostat] 0.4 mg SL Q5M PRN 06/03/20 [History] Omeprazole 20 mg PO DAILY PRN 06/03/20 [History] metFORMIN HCL [Glucophage] 500 mg PO AC-BID 06/03/20 [History] Isosorbide Mononitrate ER [Imdur] 30 mg PO DAILY #90 tab.er.24h 06/04/20 [Rx] Follow up Appointment(s)/Referral(s): Padmaja Arnold MD [STAFF PHYSICIAN] - 06/10/20 8:30 am Discharge Disposition: HOME SELF-CARE
--- NOTE | 2020-06-04 14:21 | P.HPIM ---
History of Present Illness Patient is a pleasant 74-year-old female with known history of coronary artery disease inferior wall microinfarction 2001 came in with complaints of chest pain on the left side of the chest which is reproducible musculoskeletal. And no associated shadows of breath lightheadedness. Patient chest pain sharp in nature mild to moderate and patient felt little lightheaded. Patient denied any radiation of the chest pain patient denied any significant dizziness or diaphoresis to me and patient the chest pain resolved at this time. Patient had an echo cardiac exam showed normal ejection fraction patient was ruled out acute current syndromes troponins were negative and the EKG showed some nonspecific ST-T wave changes in the inferior leads. Patient underwent stress test which is any clear stress test which was read as possibility of inducible ischemia. Cardiology did releases review these stress test results and the do not believe there is certainly a stress test is accurate as patient had a normal ejection fraction without any wall motion abnormalities and patient's symptomatology is a not consistent with cardiac chest pain rather it's musculoskeletal mostly and resolved. Because of that reason cardiology added him due to her and I recommended follow-up as an outpatient. Review of Systems REVIEW OF SYSTEMS: CONSTITUTIONAL: No fever, no malaise, no fatigue. HEENT: No recent visual problems or hearing problems. Denied any sore throat. CARDIOVASCULAR: No orthopnea, PND, no palpitations, no syncope. PULMONARY: No shortness of breath, no cough, no hemoptysis. GASTROINTESTINAL: No diarrhea, no nausea, no vomiting, no abdominal pain. NEUROLOGICAL: No headaches, no weakness, no numbness. HEMATOLOGICAL: Denies any bleeding or petechiae. GENITOURINARY: Denies any burning micturition, frequency, or urgency. MUSCULOSKELETAL/RHEUMATOLOGICAL: Denies any joint pain, swelling, or any muscle pain. ENDOCRINE: Denies any polyuria or polydipsia. The rest of the 14-point review of systems is negative. Past Medical History Past Medical History: Coronary Artery Disease (CAD), Chest Pain / Angina, Hyperlipidemia, Hypertension, Myocardial Infarction ([place]) Additional Past Medical History / Comment(s): PATIENT UNSURE IF HAD HI History of Any Multi-Drug Resistant Organisms: None Reported Past Surgical History: Heart Catheterization, Hysterectomy Additional Past Surgical History / Comment(s): PER HX NO HEART STENT PLACED Past Anesthesia/Blood Transfusion Reactions: No Reported Reaction Past Psychological History: No Psychological Hx Reported Smoking Status: Never smoker Past Alcohol Use History: None Reported Past Drug Use History: None Reported Medications and Allergies Home Medications Medication Instructions Recorded Confirmed Type Simvastatin 40 mg PO HS 05/21/17 06/03/20 History Ibuprofen 800 mg PO Q6HR PRN #20 tablet 05/16/20 06/03/20 Rx Albuterol Sulfate [Albuterol 2 puff INHALATION RT-Q6H PRN 06/03/20 06/03/20 History Sulfate Hfa] Diclofenac Sodium [Voltaren Gel] 1 applic TOPICAL BID 06/03/20 06/03/20 History Lisinopril [Prinivil] 10 mg PO DAILY 06/03/20 06/03/20 History Nitroglycerin Sl Tabs [Nitrostat] 0.4 mg SL Q5M PRN 06/03/20 06/03/20 History Omeprazole 20 mg PO DAILY PRN 06/03/20 06/03/20 History metFORMIN HCL [Glucophage] 500 mg PO AC-BID 06/03/20 06/03/20 History Isosorbide Mononitrate ER [Imdur] 30 mg PO DAILY #90 tab.er.24h 06/04/20 Rx Allergies Allergy/AdvReac Type Severity Reaction Status Date / Time No Known Allergies Allergy Verified 06/03/20 21:14 Physical Exam Vitals: Vital Signs Temp Pulse Resp BP Pulse Ox 06/04/20 12:57 98.0 F 62 18 144/73 100 06/04/20 09:16 56 L 18 139/83 98 06/04/20 07:55 49 L 18 98 06/04/20 06:15 98.4 F 69 19 126/71 97 06/03/20 23:50 57 L 18 138/92 98 06/03/20 22:15 62 18 119/82 98 06/03/20 21:11 98.4 F 64 18 144/80 99 Intake and Output 06/03/20 06/04/20 06/04/20 22:59 06:59 14:59 Other: Weight 81.647 kg 81.65 kg PHYSICAL EXAMINATION: GENERAL: The patient is alert and oriented x3, not in any acute distress. Well developed, well nourished. HEENT: Pupils are round and equally reacting to light. EOMI. No scleral icterus. No conjunctival pallor. Normocephalic, atraumatic. No pharyngeal erythema. No thyromegaly. CARDIOVASCULAR: S1 and S2 present. No murmurs, rubs, or gallops. PULMONARY: Chest is clear to auscultation, no wheezing or crackles. ABDOMEN: Soft, nontender, nondistended, normoactive bowel sounds. No palpable organomegaly. MUSCULOSKELETAL: No joint swelling or deformity. EXTREMITIES: No cyanosis, clubbing, or pedal edema. NEUROLOGICAL: Gross neurological examination did not reveal any focal deficits. SKIN: No rashes. Results CBC & Chem 7: 06/03/20 22:00 06/03/20 22:00 Labs: Abnormal Lab Results - Last 24 Hours (Table) 06/03/20 Range/Units 22:00 Sodium 136 L (137-145) mmol/L BUN 22 H (7-17) mg/dL Glucose 113 H (74-99) mg/dL Assessment and Plan Plan: 1 chest pain: Rule out acute coronary syndromes appear to be musculoskeletal atypical. Stresses results as mentioned above -Coronary disease with a history of PCI to RCA. Patient will continue with her home medications additionally imbued was added -Hypertension Dyslipidemia Patient will be discharged today as mentioned above.
[2020-06-04 14:35] VITALS: BP 133/78; PULSE 63; RESP 16
[2020-06-04] MEDS ORDERED: ATORVASTATIN 20 MG TAB PO SCH (21:00)
== END 2020-06-04 14:32 | disposition home or self-care (01) ==
LOC: EC 21:06 → 3NCARDOBS 23:24
PROVIDERS: ADMIT Internal Medicine; ATTEND Internal Medicine
DX: R07.89 Other chest pain (principal); R42 Dizziness and giddiness; R61 Generalized hyperhidrosis; R06.02 Shortness of breath; R07.2 Precordial pain; I25.10 Atherosclerotic heart disease of native coronary artery without angina pectoris; E78.5 Hyperlipidemia, unspecified; I10 Essential (primary) hypertension; R00.1 Bradycardia, unspecified; I25.2 Old myocardial infarction; Z79.82 Long term (current) use of aspirin; Z79.899 Other long term (current) drug therapy; Z98.890 Other specified postprocedural states; Z90.710 Acquired absence of both cervix and uterus; Z79.84 Long term (current) use of oral hypoglycemic drugs; Z95.5 Presence of coronary angioplasty implant and graft; Z87.891 Personal history of nicotine dependence; Z79.1 Long term (current) use of non-steroidal anti-inflammatories (NSAID)
CPT/HCPCS: 96374; 99285; 36415; 93005 ×2; 93017; 83880; 80061; 80053; 83735; 84484 ×2; 85025; 85610; 85730; 71046; 78452; G0378 ×2; A9500; J2270; J2785

== ENCOUNTER 2020-06-12 09:26 | Day surgery (SDC) | payer MEDICARE, OTHER ==
[2020-06-10 13:28] VITALS: BMI 27.4
[~2020-06-12 09:26] MED LIST changes: +ALPRAZolam 0.25 MG TAB PO PRN; +ALPRAZolam 0.5 MG TAB PO PRN; +ASPIRIN 325 MG TAB PO STA; -LACTATED RINGERS 1,000 ML IV SCH; +NITROGLYCERIN SL TABS 0.4 MG TAB SUBLINGUAL PRN; +SODIUM CHLORIDE 0.9% 1,000 ML in EMPTY BAG 1 BAG IV ONE
[2020-06-12] MEDS ORDERED: SODIUM CHLORIDE 0.9% 1,000 ML IV ONE (09:45)
[2020-06-12] MEDS ORDERED: ASPIRIN 325 MG TAB PO ONE (09:45)
[2020-06-12] MEDS ORDERED: METOPROLOL TARTRATE 25 MG TAB PO SCH (09:45)
[2020-06-12 09:57] LABS: Glucose,Whole Blood 103 mg/dL (75-99)
[2020-06-12] MEDS: lisinopriL 10 MG TAB PO SCH (10:18)
[2020-06-12] MEDS: ISOSORBIDE MONONITRATE ER 30 MG TAB.ER.24H PO SCH (10:18)
[2020-06-12] MEDS ORDERED: LIDOCAINE 1% INJ 10MG/ML (20 ML MDV) ONE (10:28)
[2020-06-12] MEDS ORDERED: MIDAZOLAM 2 MG/2 ML VIAL IV ONE (11:05)
[2020-06-12] MEDS ORDERED: LIDOCAINE 1% INJ 10MG/ML (20 ML MDV) SQ ONE (11:05)
[2020-06-12] MEDS ORDERED: BIVALIRUDIN BOLUS 250 MG/50 ML IV ONE (11:20)
[2020-06-12] MEDS ORDERED: BIVALIRUDIN 250 MG in SODIUM CHLORIDE 0.9% 50 ML IV ONE (11:21)
[2020-06-12] MEDS: NITROGLYCERIN 1000MCG/10ML SYRINGE INTRACORON ONE ×2 (11:37→11:45)
[2020-06-12] MEDS ORDERED: IOPAMIDOL-370 125ML BTL INJ ONE (11:40)
[2020-06-12] MEDS ORDERED: CLOPIDOGREL 75 MG TAB ONE (11:48)
[2020-06-12] MEDS ORDERED: CLOPIDOGREL 75 MG TAB PO ONE (11:51)
[2020-06-12] MEDS ORDERED: IOPAMIDOL-370 100ML BTL INJ ONE (11:51)
[2020-06-12] MEDS ORDERED: NITROGLYCERIN SL TABS 0.4 MG TAB SUBLINGUAL PRN (12:01)
[2020-06-12] MEDS ORDERED: ZOLPIDEM 5 MG TAB PO PRN (12:01)
[2020-06-12] MEDS ORDERED: ATROPINE SULFATE 0.1 MG/ML 10ML SYRINGE IV PRN (12:01)
[2020-06-12] MEDS ORDERED: RX INFO: IV CONTRAST WAS GIVEN 1 EACH MISC MISCELLANE PRN (12:01)
[2020-06-12] MEDS ORDERED: MAG HYDROX/AL HYDROX/SIMETH 30 ML CUP PO PRN (12:01)
[2020-06-12] MEDS ORDERED: SODIUM CHLORIDE 0.9% 1,000 ML IV SCH (12:15)
[2020-06-12 12:33] LABS: Glucose,Whole Blood 93 mg/dL (75-99)
--- NOTE | 2020-06-12 12:56 | CC ---
CARDIAC CATHETERIZATION REPORT DATE OF SERVICE: 06/12/2020. PROCEDURE: 1. Left heart catheterization and coronary angiography. 2. PTCA and stenting of a restenotic lesion in the proximal RCA with a drug-eluting stent. PERFORMED BY: Dr. Lilian Arnold. Moderate conscious sedation time was 45 minutes. The patient was administered Versed. Oxygen saturation, hemodynamics, and EKG were monitored closely. CLINICAL INFORMATION: Mrs. Leila Thompson is a 74-year-old lady with a known history of type 2 diabetes, hypertension, and hyperlipidemia. She has known CAD, previous stenting of RCA performed initially in 2001 and then she had a restenotic lesion in 2013. She had a chronic total occlusion which was addressed in [facility] in [facility]. Since then, she has done well. Recently she was hospitalized, had an abnormal stress test, therefore was advised cardiac catheterization after due discussion regarding risks, benefits, and options. PROCEDURE NOTE: Under local anesthesia and strict aseptic precautions, a 6-Kiswahili introducer was placed in the right femoral artery. Using standard Massimo catheters, I performed coronary angiography and the same right Massimo catheter was used to check LV pressures but LV gram was not performed. Because patient had significant restenotic lesion in the proximal portion of the stented segment in RCA, which was an in-stent restenosis, I proceeded to perform intervention in the same setting. Following the intervention, the sheath was taken out and Angio-Seal device used to secure hemostasis and she was sent to the room in a stable condition. CARDIAC CATHETERIZATION FINDINGS: Left ventricular end-diastolic pressure was about 5-6 mmHg without any gradient across the aortic valve. CORONARY ANGIOGRAPHY FINDINGS: RIGHT CORONARY ARTERY: This is a dominant vessel. In the proximal portion she has a long stented area, in the proximal 1/3 of the stented area there is a 90% narrowing, then beyond that, there is a smooth area of disease, but flow is fairly brisk distally. This vessel bifurcates into a large PDA and PLV, both of which have minor irregularities. There is a long stented segment, proximal 1/3 of the stented segment has disease and then maximal stenosis is about 90%-95%. Before the stenotic lesion also, there is an area of narrowing as well. LEFT MAIN CORONARY ARTERY: This is a short patent vessel that trifurcates into LAD, circumflex and ramus intermedius. Left main itself is free of significant disease. LEFT ANTERIOR DESCENDING CORONARY ARTERY: This is a good caliber vessel, gives off what seems to be either a high diagonal or ramus. This ramus or high diagonal has about a 30% to 40% narrowing. No significant disease. Fairly decent flow supplies a fair amount of myocardium. The LAD in the midportion has about a 50% lesion located right after the second diagonal branch and another 40% lesion before a good-sized first diagonal branch. However, the 2 lesions in the LAD are about 45% to 50% and do not seem to be critical. There is a lesion after the second diagonal which is a very eccentric lesion and in some views, it does look more than 60%. However, on the stress test, the LAD did not. The LAD distribution did not reveal any ischemia. There are multiple septal branches which are free of significant disease. Mid LAD after the second diagonal, therefore has an eccentric lesion and the second diagonal itself is not very large. LEFT POSTERIOR CIRCUMFLEX CORONARY ARTERY. A small non-nondominant vessel, gives off a single obtuse marginal laterally and gives off a posterolateral branch has minor irregularities no more than 40% to 50%. Left ventriculogram was not performed. FINAL IMPRESSION: This patient has a right dominant system with a restenotic proximal RCA lesion within the previously stented segment of 95%. Dominant vessel. The LAD has a 60% to 55% lesion in the midportion after the second diagonal eccentric in nature. The circumflex is nondominant, has mild irregularities. There is a ramus or high diagonal which has about a 30% to 40% narrowing. LV pressures are normal. There is no gradient across the aortic valve. An LV-gram was not performed. RECOMMENDATIONS: I recommended PCI of RCA and proceeded to perform this in the same setting. PCI PROCEDURE DETAILS: A standard right Massimo guide catheter was used to cannulate the right coronary artery. A whisper straight wire was used to cross the lesion. A 2.75 caliber 15 mm NC Emerge balloon was used to pre-dilate the lesion. A 23 mm long 3.25 caliber Xience stent was deployed with the proximal end of the stent located right at the acute marginal branch. Distal area of the stent was within the previous stented segment well beyond the stenotic lesion. This stent was deployed at 13 atmospheres. I went and postdilated this entire stented area and also distal to the stent with a 3.5 x 15 mm NC Trek balloon. NC emerge balloon sorry. Excellent angiographic result was achieved. Patient did not have chest pain or EKG changes. Angiographic result was excellent with remarkably good flow without any residual stenosis of significance. The sheath was then taken out and Angio-Seal device used to secure hemostasis. Patient received Angiomax bolus and infusion as per protocol. She also received Plavix 600 mg. The patient was sent to the room in stable condition. Findings and details of the procedure and results were discussed with the patient and family. MMODL / IJN: [id number] /
[2020-06-12 16:43] LABS: Glucose,Whole Blood 117 mg/dL (75-99)
[2020-06-12 20:17] LABS: Glucose,Whole Blood 108 mg/dL (75-99)
[2020-06-12] MEDS ORDERED: ATORVASTATIN 80 MG TAB PO SCH (21:00)
[2020-06-13 04:17] VITALS: TEMP 97.8
[2020-06-13 06:18] LABS: Glucose,Whole Blood 115 mg/dL (75-99)
[2020-06-13 06:46] LABS: Basophils % (A) 1 %; Eosinophils # (A) 0.2 k/uL (0-0.7); Eosinophils % (A) 4 %; HCT 38.7 % (34.0-46.0); HGB 12.7 gm/dL (11.4-16.0); Lymphocytes # (A) 1.5 k/uL (1.0-4.8); Lymphocytes % (A) 36 %; MCH 29.8 pg (25.0-35.0); MCHC 32.8 g/dL (31.0-37.0); Mean Platelet Volume 8.1; Monocytes # (A) 0.2 k/uL (0-1.0); Monocytes % (A) 6 %; Neutrophils # (A) 2.1 k/uL (1.3-7.7); Neutrophils % (A) 52 %; Platelet Count 228 k/uL (150-450); RBC 4.26 m/uL (3.80-5.40); WBC 4.1 k/uL (3.8-10.6)
[2020-06-13 07:02] LABS: African American GFR (CKD) >90 (>60 ml/min/1.73 sqM); Anion Gap 6 mmol/L; Blood Urea Nitrogen 12 mg/dL (7-17); Calcium 9.2 mg/dL (8.4-10.2); Carbon Dioxide 26 mmol/L (22-30); Chloride 107 mmol/L (98-107); Glucose 119 mg/dL (74-99); Non-African American GFR(CKD) 87 (>60 ml/min/1.73 sqM); Potassium 4.2 mmol/L (3.5-5.1); Sodium 139 mmol/L (137-145)
[2020-06-13] MEDS ORDERED: METOPROLOL TARTRATE 12.5 MG TAB PO SCH (09:00)
[2020-06-13] MEDS ORDERED: CLOPIDOGREL 75 MG TAB PO SCH (09:00)
[2020-06-13] MEDS ORDERED: ASPIRIN 81 MG PO SCH (09:00)
[2020-06-13 09:25] VITALS: BP 143/87; PULSE 67; RESP 18
--- NOTE | 2020-06-13 11:03 | DS ---
DISCHARGE SUMMARY DATE OF ADMISSION: 06/12/2020 DATE OF DISCHARGE: 06/13/2020 DIAGNOSES: Unstable angina, type 2 diabetes, hypertension, hypercholesterolemia. Mrs. Leila Thompson was admitted for elective cardiac cath because of recent abnormal stress test. She is known to have previous PCI of RCA in 2001 and subsequently in 2013 and at that time in 2013, this was a chronic total occlusion. Because of symptoms of chest discomfort, she was hospitalized and had abnormal stress test, was brought back for cardiac cath after due discussion regarding risks, benefits, and options. Coronary angiography revealed that she had a 50% to 55% mid LAD lesion, which was progression of disease with multiple other areas of 30% to 40% in the LAD. Circumflex was relatively free of significant disease. The diagonal branch had mild to moderate disease. RCA which was stented in the past had a significant restenotic lesion within the proximal 1/3 of the stent of 95%. This was addressed with a new 3.25 caliber drug-eluting stent and post-dilated with a 3.5 noncompliant balloon. Excellent angiographic result was achieved. Postprocedure course was uneventful. She is asymptomatic, resting comfortably. She has some asymptomatic bradycardia. I am recommending 12.5 mg of metoprolol tartrate to be given if the heart rate is more than 60. She will be on aspirin and Plavix combination. Importance of dual antiplatelet therapy was discussed with the patient. She will be discharged on aspirin, Plavix, atorvastatin 80 mg daily instead of simvastatin and metoprolol tartrate with the guidelines as indicated above. Discharge instructions regarding activity, diet and medications were given. I will see the patient on Wednesday at 8:30 am. MMCHANELLE / SUSANAN: [id number] /
[2020-06-13] MEDS: ISOSORBIDE MONONITRATE ER 30 MG TAB.ER.24H PO SCH (11:09)
[2020-06-13] MEDS: lisinopriL 10 MG TAB PO SCH (11:09)
== END 2020-06-13 11:33 | disposition home or self-care (01) ==
LOC: CATHCVL 09:26 → 3NCARDOBS 11:50 → CATHCVL 06-13 11:33
PROVIDERS: ATTEND Internal Medicine Interventional Cardiology
DX: I25.110 Atherosclerotic heart disease of native coronary artery with unstable angina pectoris (principal); T82.855A Stenosis of coronary artery stent, initial encounter; I25.82 Chronic total occlusion of coronary artery; I25.2 Old myocardial infarction; I10 Essential (primary) hypertension; E11.9 Type 2 diabetes mellitus without complications; E78.5 Hyperlipidemia, unspecified; E78.00 Pure hypercholesterolemia, unspecified; Z90.710 Acquired absence of both cervix and uterus; Z79.84 Long term (current) use of oral hypoglycemic drugs; Z79.82 Long term (current) use of aspirin; Z79.02 Long term (current) use of antithrombotics/antiplatelets; Z79.899 Other long term (current) drug therapy; Z87.891 Personal history of nicotine dependence
CPT/HCPCS: 93458; 80048; 85025; C9600; C1769 ×4; C1760; C1887; C1725; C1894; C1874; J2250; J2001; J0583; Q9967 ×2

== ENCOUNTER 2020-09-07 10:25 | Emergency (ER) | payer MEDICARE, OTHER ==
[2020-09-07 10:33] VITALS: RESP 18
[2020-09-07] MEDS ORDERED: FLUORESCEIN STRIPS 1 MG STRIP LEFT EYE ONE (10:39)
[2020-09-07] MEDS ORDERED: PROPARACAINE 0.5% OPHTH DROPS 15 ML BTL LEFT EYE STA (10:41)
--- NOTE | 2020-09-07 10:42 | ED ---
Eye Problem HPI - General Chief complaint: Eye Problems Stated complaint: Eye Problem Time Seen by Provider: 09/07/20 10:34 Source: patient Mode of arrival: ambulatory Limitations: no limitations - History of Present Illness Initial comments: 74-year-old female with history of recent cataract surgery of the left eye September [address] Hudson. Patient states that she did not experience much redness/discomfort following the surgery and yesterday her eye felt "normal". This morning she woke up with blurred vision, light sensitivity and notable redness. Patient denies drainage. Denies history concerning for foreign body. Pt denies nausea, vomiting, headaches, or temporal tenderness. Patient denies double vision, flashes of light or floaters. Patient denies fever, URI symptoms. Denies rashes of the face/scalp or pain. Patient states she has been taking the ciprofloxacin 0.3% ophthalmic drops 3x a day as prescribed by her enrollment nurse. - Related Data Home Medications Medication Instructions Recorded Confirmed Diclofenac Sodium [Voltaren Gel] 1 applic TOPICAL BID PRN 06/03/20 09/07/20 Lisinopril [Prinivil] 10 mg PO DAILY 06/03/20 09/07/20 Omeprazole 20 mg PO DAILY PRN 06/03/20 09/07/20 metFORMIN HCL [Glucophage] 500 mg PO AC-BID 06/03/20 09/07/20 Ciprofloxacin Ophth Soln [Cipro 1 drops LEFT EYE TID 09/07/20 09/07/20 0.3% Ophth Soln] Metoprolol Tartrate [Lopressor] 12.5 mg PO DAILY 09/07/20 09/07/20 Previous Rx's Medication Instructions Recorded Isosorbide Mononitrate ER [Imdur] 30 mg PO DAILY #90 tab.er.24h 06/04/20 Atorvastatin [Lipitor] 80 mg PO DAILY #90 tab 06/13/20 Clopidogrel [Plavix] 75 mg PO DAILY #90 tablet 06/13/20 Nitroglycerin Sl Tabs [Nitrostat] 0.4 mg SUBLINGUAL Q5M PRN #25 tab 06/13/20 Cyclopentolate 1% Ophth Soln 1 drops LEFT EYE TID 7 Days #3 ml 09/07/20 [Cyclogyl 1% Ophth Soln] Moxifloxacin [Vigamox 0.3%] 1 drop LEFT EYE Q2H 7 Days #3 ml 09/07/20 Prednisolone Acetate/Pf 1 drop LEFT EYE Q2H 7 Days #3 ml 09/07/20 [Prednisolone Acet 1% Eye Drop] Allergies Allergy/AdvReac Type Severity Reaction Status Date / Time No Known Allergies Allergy Verified 09/07/20 11:22 Review of Systems ROS Statement: Those systems with pertinent positive or pertinent negative responses have been documented in the HPI. ROS Other: All systems not noted in ROS Statement are negative. Past Medical History Past Medical History: Coronary Artery Disease (CAD), Chest Pain / Angina, Hyperlipidemia, Hypertension, Myocardial Infarction ([place]) Additional Past Medical History / Comment(s): PATIENT UNSURE IF HAD [place] Last Myocardial Infarction Date:: 1999 History of Any Multi-Drug Resistant Organisms: None Reported Past Surgical History: Heart Catheterization, Hysterectomy Additional Past Surgical History / Comment(s): stent rca 2001, ptba rca 2113, stent rca by CORY Arnold 06/09/2020, catract Past Anesthesia/Blood Transfusion Reactions: No Reported Reaction Past Psychological History: No Psychological Hx Reported Smoking Status: Former smoker Past Alcohol Use History: None Reported Past Drug Use History: None Reported - Past Family History Mother Additional Family Medical History / Comment(s): does not know. states was very small Father Family Medical History: No Reported History Additional Family Medical History / Comment(s): patient does not know states was very small General Exam - General Exam Comments Initial Comments: General: The patient is awake and alert, in no distress, and does not appear acutely ill. Eye: +3 mm pupils are equal, round and reactive to light, extra-ocular movements are intact. No pain with EOM. NO external swelling. Both direct and consensual photophobia. No APD appreciated. No nystagmus. There is left eye conjunctiva injection it is not sparing the limbus, right eye no injection. Appreciate opacity of the cornea. No signs of icterus. Intraocular pressure left eye 11. OS 20/200, OD 20/50 with corrective lenses (glasses) Ears, nose, mouth and throat: There are moist mucous membranes and no oral lesions. Musculoskeletal: Normal ROM, no tenderness. Strength 5/5. Sensation intact. Pulses equal bilaterally 2+. Neurological: A&O x 3. CN II-XII intact, There are no obvious motor or sensory deficits. Coordination appears grossly intact. Speech is normal. Skin: Skin is warm and dry and no rashes or lesions are noted. No scalp or facial lesions no temporal tenderness. Psychiatric: Cooperative, appropriate mood & affect, normal judgment. Limitations: no limitations Course Vital Signs 09/07/20 09/07/20 09/07/20 10:29 12:42 13:44 Temperature 97.9 F 98.2 F Pulse Rate 54 L 53 L 55 L Respiratory 18 18 18 Rate Blood Pressure 140/72 132/86 137/64 O2 Sat by Pulse 98 100 100 Oximetry Medical Decision Making - Medical Decision Making 74yo female presenting for cc of left eye pain, recent cataract surgery. Patient the evaluated in the emergency department by ophthalmology-Dr. Lantigua aqueous humor sample obtained. (-) gram stain (-). he gave all antibiotic recommendations he will see patient for follow-up tomorrow at 8 AM in his office. i ordered outpatient prescription (verbal orders). he is agreeable to discdharge with close outpatient f/u. pt discharged appearing well.Dr. Warner agreeable to care plan. Disposition Clinical Impression: Endophthalmitis, Left eye pain, Conjunctival injection Disposition: HOME SELF-CARE Condition: Good Additional Instructions: Please use medication as discussed. Please follow-up with Dr. Lantigua in office tomorrow as discussed, please administer drops as discussed-return for worsening symptoms/fevers to the ER. Please return to emergency room if the symptoms increase or worsen or for any other concerns. Prescriptions: Cyclopentolate 1% Ophth Soln [Cyclogyl 1% Ophth Soln] 1 drops LEFT EYE TID 7 Days #3 ml Prednisolone Acetate/Pf [Prednisolone Acet 1% Eye Drop] 1 drop LEFT EYE Q2H 7 Days #3 ml Moxifloxacin [Vigamox 0.3%] 1 drop LEFT EYE Q2H 7 Days #3 ml Is patient prescribed a controlled substance at d/c from ED?: No Referrals: Trey Hawley MD [Primary Care Provider] - 1-2 days Edy Lantigua MD [STAFF PHYSICIAN] - 09/08/20 Time of Disposition: 12:53
[2020-09-07] MEDS ORDERED: PHENYLEPHRINE 2.5% OPHTH DRP 2ML LEFT EYE STA (11:15)
[2020-09-07] MEDS ORDERED: CYCLOPENTOLATE 1% OPHTH SOLN 2 ML BTL LEFT EYE STA (11:17)
[2020-09-07] MEDS ORDERED: FLUORESCEIN STRIPS 1 MG STRIP BOTH EYES ONE (12:27)
[2020-09-07 12:45] VITALS: TEMP 98.2
[2020-09-07] MEDS ORDERED: MOXIFLOXACIN HCL 0.5% DROPS 3 ML BTL LEFT EYE ONE (12:50)
--- NOTE | 2020-09-07 13:04 | P.CON ---
Consult Note - . Consult date: 09/07/20 Assessment/Plan:: This is a 74 y/o who underwent cataract surgery on left eye 5 days ago. Apparently vision was good and eye comfortable immediately after surgery until this morning early. She states that the vision in the eye is poor and was aching about 10/10. Ahe admits to photophobia There is no discharge or any known scratch of the eye. She presented to ER with red eye and poor vision. Va: 20/200 OS, IOP 13 OD, 11 OS by [facility] External: unremarkable except for the mild squinting of the left eye conj: mild injection on left to limbus Cornea: clear with mild endothelial wrinkling, no leaks AC: 1+ cell and 2+ flare Lens: pseudophakic Vitreous: no overt cells, with mild vitreous veils and PVD ONH: normal pink, healthy, C:D 0.30, fundus: circulation is normal, A:V 0.67, Mac: quiet, +FLR Procedure: AC tap through paracentesis 0.15 ml obtained and sent for gram, ae/anaerobic cultures. A: endophthalmitis left eye, cannot appreciate TASS vs infectious endophthalmitis for the moment, awaiting labs. P: will change medications to moxifloxacin every 2 hours swhile awake and twice at night, Prednisolone acetate every 2 hours while awake and add 1% cyclopentolate 3 times daily. Will follow on office in AM and will review labs at that time.
[2020-09-07 13:45] VITALS: BP 137/64; PULSE 55
[2020-09-07] MEDS ORDERED: prednisoLONE ACETATE 1% OPHTH DROPS 5 ML BTL LEFT EYE SCH (14:00)
== END 2020-09-07 14:04 | disposition home or self-care (01) ==
LOC: EC 10:25
DX: H44.002 Unspecified purulent endophthalmitis, left eye (principal); H11.89 Other specified disorders of conjunctiva; I10 Essential (primary) hypertension; I20.9 Angina pectoris, unspecified; Z79.899 Other long term (current) drug therapy; Z95.5 Presence of coronary angioplasty implant and graft; Z87.891 Personal history of nicotine dependence; Z90.710 Acquired absence of both cervix and uterus; Z98.42 Cataract extraction status, left eye
CPT/HCPCS: 87070; 87075; 87205; 99284

== ENCOUNTER → 2022-04-16 | Outpatient (CLI) | payer MEDICARE, OTHER ==
--- NOTE | 2022-04-17 04:39 | MR ---
EXAMINATION TYPE: MR brain wo con DATE OF EXAM: 04/16/2022 COMPARISON: None HISTORY: Memory loss. Multiplanar multiecho imaging of the brain performed with no contrast. Ventricles of normal size. Diffusion images show no evidence of an acute infarct. There is cerebral c ortical atrophy. There is no mass effect or midline shift. No sign of intracranial hemorrhage. There is coalescent increased signal in the periventricular white matter on the T2 and FLAIR images. This m easures up to 1.5 cm in thickness. There are multiple foci of increased signal at the yates-white justyn er junction of both cerebral hemispheres measuring up to 1 cm. In total number is partially 20 Corpus callosum is intact. The brainstem is intact. No evidence of posterior fossa mass. Sella turcic a appears normal. No evidence of orbital mass. IMPRESSION: Mild atrophy. Extensive white matter changes that could be microvascular ischemia and demyelinating d isease. No evidence of cortical infarct.
== END | disposition home or self-care (01) ==
LOC: RADMRIMAIN 17:15
PROVIDERS: ATTEND Psychiatry & Neurology Neurology
DX: G31.9 Degenerative disease of nervous system, unspecified (principal); R41.3 Other amnesia
CPT/HCPCS: 70551

== ENCOUNTER 2022-05-11 17:45 | Emergency (ER) | payer MEDICARE, OTHER ==
[2022-05-11 17:50] VITALS: BP 163/93; PULSE 70; RESP 16; TEMP 98
[2022-05-11 18:27] LABS: Basophils # (A) 0.1 k/uL (0-0.2); Basophils % (A) 1 %; Eosinophils # (A) 0.1 k/uL (0-0.7); Eosinophils % (A) 2 %; HCT 40.4 % (34.0-46.0); HGB 13.4 gm/dL (11.4-16.0); Lymphocytes # (A) 1.5 k/uL (1.0-4.8); Lymphocytes % (A) 33 %; MCH 29.5 pg (25.0-35.0); MCHC 33.1 g/dL (31.0-37.0); MCV 88.9 fL (80.0-100.0); Mean Platelet Volume 8.2; Monocytes # (A) 0.3 k/uL (0-1.0); Monocytes % (A) 7 %; Neutrophils # (A) 2.6 k/uL (1.3-7.7); Neutrophils % (A) 56 %; Platelet Count 252 k/uL (150-450); RBC 4.55 m/uL (3.80-5.40); RDW 12.5 % (11.5-15.5); WBC 4.6 k/uL (3.8-10.6)
[2022-05-11 18:36] LABS: INR 0.9 (<1.2); Partial Thromboplastin Time 25.1 sec (22.0-30.0); Prothrombin Time 10.1 sec (9.0-12.0)
[2022-05-11 18:38] LABS: ALT 18 U/L (4-34); AST 27 U/L (14-36); African American GFR (CKD) >90 (>60 ml/min/1.73 sqM); Albumin 4.3 g/dL (3.5-5.0); Alkaline Phosphatase 79 U/L (38-126); Anion Gap 10 mmol/L; Blood Urea Nitrogen 11 mg/dL (7-17); Calcium 9.2 mg/dL (8.4-10.2); Carbon Dioxide 27 mmol/L (22-30); Chloride 102 mmol/L (98-107); Glucose 106 mg/dL (74-99); Magnesium 1.7 mg/dL (1.6-2.3); Non-African American GFR(CKD) 84 (>60 ml/min/1.73 sqM); Potassium 3.7 mmol/L (3.5-5.1); Sodium 139 mmol/L (137-145); Total Bilirubin 0.4 mg/dL (0.2-1.3); Total Protein 7.1 g/dL (6.3-8.2)
--- NOTE | 2022-05-11 18:40 | XR ---
EXAMINATION TYPE: XR chest 2V DATE OF EXAM: 05/11/2022 COMPARISON: 06/03/2020 HISTORY: Chest pain TECHNIQUE: 2 views FINDINGS: There is mild thoracic dextroscoliosis. Heart size is normal. There are no hilar masses. Co stophrenic angles are clear. Bony thorax is intact IMPRESSION: No active cardiopulmonary disease. No adverse change compared to exam
--- NOTE | 2022-05-11 19:37 | ED ---
Chest Pain HPI - General Chief Complaint: Chest Pain Stated Complaint: Chest pain Time Seen by Provider: 05/11/22 19:18 Source: patient Mode of arrival: wheelchair Limitations: no limitations - History of Present Illness Initial Comments: This 76-year-old female presents with a complaint of some left-sided chest pain. She states that this just occurred earlier today. It was associated with some palpitations. It occurred at rest. She relates that it did radiate up into her left shoulder. She denies any leg pain or swelling or history of DVT or PE. She does have a long history of coronary artery disease. She states that she has previously had open heart surgery. She has had multiple cardiac stents as well. She tried a sublingual nitroglycerin today and this seemed to help. She does not normally have to take sublingual nitroglycerin and states that the last time she did was a couple of years ago. She denies any fevers or chills. No other complaints or modifying factors. - Related Data Home Medications Medication Instructions Recorded Confirmed Diclofenac Sodium [Voltaren Gel] 1 applic TOPICAL BID PRN 06/03/20 09/07/20 Omeprazole 20 mg PO DAILY PRN 06/03/20 09/07/20 lisinopriL [Prinivil] 10 mg PO DAILY 06/03/20 09/07/20 metFORMIN HCL [Glucophage] 500 mg PO AC-BID 06/03/20 09/07/20 Ciprofloxacin Ophth Soln [Cipro 1 drops LEFT EYE TID 09/07/20 09/07/20 0.3% Ophth Soln] Metoprolol Tartrate [Lopressor] 12.5 mg PO DAILY 09/07/20 09/07/20 Previous Rx's Medication Instructions Recorded Isosorbide Mononitrate ER [Imdur] 30 mg PO DAILY #90 tab.er.24h 06/04/20 Atorvastatin [Lipitor] 80 mg PO DAILY #90 tab 06/13/20 Clopidogrel [Plavix] 75 mg PO DAILY #90 tablet 06/13/20 Nitroglycerin Sl Tabs [Nitrostat] 0.4 mg SUBLINGUAL Q5M PRN #25 tab 06/13/20 Cyclopentolate 1% Ophth Soln 1 drops LEFT EYE TID 7 Days #3 ml 09/07/20 [Cyclogyl 1% Ophth Soln] Moxifloxacin [Vigamox 0.5%] 1 drop LEFT EYE Q2H 7 Days #3 ml 09/07/20 Prednisolone Acetate/Pf 1 drop LEFT EYE Q2H 7 Days #3 ml 09/07/20 [Prednisolone Acet 1% Eye Drop] Allergies Allergy/AdvReac Type Severity Reaction Status Date / Time No Known Allergies Allergy Verified 05/11/22 17:50 Review of Systems ROS Statement: Those systems with pertinent positive or pertinent negative responses have been documented in the HPI. ROS Other: All systems not noted in ROS Statement are negative. Past Medical History Past Medical History: Coronary Artery Disease (CAD), Chest Pain / Angina, Hyperlipidemia, Hypertension, Myocardial Infarction ([place]) Additional Past Medical History / Comment(s): PATIENT UNSURE IF HAD [place] Last Myocardial Infarction Date:: 1999 History of Any Multi-Drug Resistant Organisms: None Reported Past Surgical History: Heart Catheterization, Hysterectomy Additional Past Surgical History / Comment(s): stent rca 2001, ptba rca 2113, stent rca by CORY Arnold 06/09/2020, catract Past Anesthesia/Blood Transfusion Reactions: No Reported Reaction Past Psychological History: No Psychological Hx Reported Smoking Status: Former smoker Past Alcohol Use History: None Reported Past Drug Use History: None Reported - Past Family History Mother Additional Family Medical History / Comment(s): does not know. states was very small Father Family Medical History: No Reported History Additional Family Medical History / Comment(s): patient does not know states was very small General Exam - General Exam Comments Initial Comments: GENERAL: The patient is well nourished and well hydrated. VITAL SIGNS: Heart rate, blood pressure, respiratory rate reviewed as recorded in nurse's notes. EYES: Pupils are round and reactive. Extraocular movements are intact. No conjunctival / lid redness or swelling. ENT: No external evidence of injury, swelling, or ecchymosis. Airway is patent. Throat is clear. NECK: Nontender. No swelling or evidence of injury. No subcutaneous emphysema. Trachea is midline. No thyroid mass. HEART: Regular rate and rhythm. Good peripheral pulses. LUNGS/CHEST: Breath sounds clear and equal bilaterally. No rales, rhonchi, or wheezes. No ecchymosis, subcutaneous emphysema, or tenderness. ABDOMEN: Abdomen soft without tenderness. No palpable masses or organomegaly. No peritoneal signs. No abdominal wall swelling or ecchymosis. EXTREMITIES: No extremity tenderness. Normal muscle tone and function. No thoracolumbar tenderness. NEUROLOGIC: Sensation is grossly intact. Cranial nerve exam reveals face is symmetrical, tongue is midline, speech is clear. SKIN: No abrasions or ecchymosis is noted. No induration or masses noted. PSYCHIATRIC: Alert and oriented. Appropriate behavior and judgment. Limitations: no limitations Course Vital Signs 05/11/22 17:48 Temperature 98 F Pulse Rate 70 Respiratory 16 Rate Blood Pressure 163/93 O2 Sat by Pulse 97 Oximetry Chest Pain MDM - MDM The patient was seen and examined. All diagnostics are reviewed. The EKG shows a normal sinus rhythm at a rate of 71. There is no acute ST-T wave changes identified. The SD interval is 136, QRS duration is 80, and the QTc interval is 392. The laboratory came back all essentially within normal limits. The chest x-ray does not show any acute process. Due to her significant history of coronary artery disease, it is felt as though the patient may benefit from admission to the hospital for further treatment. She adamantly refuses to be ad mitted to the hospital. She states that she feels fine now. A long discussion was held in regards to risks and benefits in regards to admission versus leaving AGAINST MEDICAL ADVICE. She still elects to leave AGAINST MEDICAL ADVICE. Close follow-up with her chute tender is strongly suggested. Return parameters are discussed. Disposition Clinical Impression: Chest pain, Left against medical advice, History of coronary artery disease, Palpitations Disposition: Left Against Medical Advice Condition: Fair Instructions (If sedation given, give patient instructions): Chest Pain (ED), Heart Palpitations (ED) Is patient prescribed a controlled substance at d/c from ED?: No Referrals: None,Stated [Primary Care Provider] - 1-2 days Reji Wu MD [STAFF PHYSICIAN] - 1-2 days Time of Disposition: 19:36
== END 2022-05-11 20:02 | disposition left against medical advice (07) ==
LOC: EC 17:45
DX: R07.89 Other chest pain (principal); R00.2 Palpitations; Z53.29 Procedure and treatment not carried out because of patient's decision for other reasons; Z86.79 Personal history of other diseases of the circulatory system; I10 Essential (primary) hypertension; I25.2 Old myocardial infarction; Z87.891 Personal history of nicotine dependence; Z79.899 Other long term (current) drug therapy
CPT/HCPCS: 36415; 71046; 80053; 83735; 84484; 85025; 85610; 85730; 93005; 99285

== ENCOUNTER 2022-05-22 19:43 | Emergency (ER) | payer MEDICARE, OTHER ==
[2022-05-22 20:18] LABS: Basophils # (A) 0.1 k/uL (0-0.2); Basophils % (A) 1 %; Eosinophils # (A) 0.1 k/uL (0-0.7); Eosinophils % (A) 2 %; HCT 39.8 % (34.0-46.0); HGB 13.4 gm/dL (11.4-16.0); Lymphocytes # (A) 1.6 k/uL (1.0-4.8); Lymphocytes % (A) 37 %; MCH 30.1 pg (25.0-35.0); MCHC 33.6 g/dL (31.0-37.0); MCV 89.4 fL (80.0-100.0); Mean Platelet Volume 8.1; Monocytes # (A) 0.3 k/uL (0-1.0); Monocytes % (A) 6 %; Neutrophils # (A) 2.3 k/uL (1.3-7.7); Neutrophils % (A) 52 %; Platelet Count 235 k/uL (150-450); RBC 4.46 m/uL (3.80-5.40); RDW 12.8 % (11.5-15.5); WBC 4.3 k/uL (3.8-10.6)
[2022-05-22 20:27] LABS: African American GFR (CKD) >90 (>60 ml/min/1.73 sqM); Anion Gap 12 mmol/L; Blood Urea Nitrogen 14 mg/dL (7-17); Calcium 9.3 mg/dL (8.4-10.2); Carbon Dioxide 24 mmol/L (22-30); Chloride 100 mmol/L (98-107); Glucose 108 mg/dL (74-99); Non-African American GFR(CKD) 86 (>60 ml/min/1.73 sqM); Potassium 3.6 mmol/L (3.5-5.1); Sodium 136 mmol/L (137-145)
--- NOTE | 2022-05-22 20:45 | ED ---
Headache HPI - General Chief Complaint: Headache Stated Complaint: dizziness headache Time Seen by Provider: 05/22/22 19:50 Mode of arrival: EMS - History of Present Illness Initial Comments: Patient is a 76-year-old female presenting to the emergency room with complaints of a headache and visual disturbances of color with sudden onset earlier today and slowly improved without intervention. She reports that her visual disturbances completely. The headache is mild at this time. She denies previous episodes of this happening. She also reports some associated lightheadedness. Unfortunately her baseline mental status is alert and orientated 2 with some mild baseline dementia so she is a poor her cerumen in regards to medication and previous events. She did undergo an MRI earlier this year in regards to these symptoms without any acute findings noted. She denies any other complaints or concerns at this time including any chest pain, shortness breath, abdominal pain, nausea, vomiting, focal neurological weakness, fevers or chills. In addition to her dementia past medical history she has a past medical history significant for diabetes, CAD, hypertension and hyperlipidemia. - Related Data Home Medications Medication Instructions Recorded Confirmed Diclofenac Sodium [Voltaren Gel] 1 applic TOPICAL BID PRN 06/03/20 09/07/20 Omeprazole 20 mg PO DAILY PRN 06/03/20 09/07/20 lisinopriL [Prinivil] 10 mg PO DAILY 06/03/20 09/07/20 metFORMIN HCL [Glucophage] 500 mg PO AC-BID 06/03/20 09/07/20 Ciprofloxacin Ophth Soln [Cipro 1 drops LEFT EYE TID 09/07/20 09/07/20 0.3% Ophth Soln] Metoprolol Tartrate [Lopressor] 12.5 mg PO DAILY 09/07/20 09/07/20 Previous Rx's Medication Instructions Recorded Isosorbide Mononitrate ER [Imdur] 30 mg PO DAILY #90 tab.er.24h 06/04/20 Atorvastatin [Lipitor] 80 mg PO DAILY #90 tab 06/13/20 Clopidogrel [Plavix] 75 mg PO DAILY #90 tablet 06/13/20 Nitroglycerin Sl Tabs [Nitrostat] 0.4 mg SUBLINGUAL Q5M PRN #25 tab 06/13/20 Cyclopentolate 1% Ophth Soln 1 drops LEFT EYE TID 7 Days #3 ml 09/07/20 [Cyclogyl 1% Ophth Soln] Moxifloxacin [Vigamox 0.5%] 1 drop LEFT EYE Q2H 7 Days #3 ml 09/07/20 Prednisolone Acetate/Pf 1 drop LEFT EYE Q2H 7 Days #3 ml 09/07/20 [Prednisolone Acet 1% Eye Drop] Allergies Allergy/AdvReac Type Severity Reaction Status Date / Time No Known Allergies Allergy Verified 05/11/22 17:50 Review of Systems ROS Statement: Those systems with pertinent positive or pertinent negative responses have been documented in the HPI. ROS Other: All systems not noted in ROS Statement are negative. Past Medical History Past Medical History: Coronary Artery Disease (CAD), Chest Pain / Angina, [place], Diabetes Mellitus, Hyperlipidemia, Hypertension, Myocardial Infarction ([place]) Last Myocardial Infarction Date:: 1999 History of Any Multi-Drug Resistant Organisms: None Reported Past Surgical History: Heart Catheterization, Hysterectomy Additional Past Surgical History / Comment(s): stent rca 2001, ptba rca 2113, stent rca by CORY Arnold 06/09/2020, catract Past Anesthesia/Blood Transfusion Reactions: No Reported Reaction Past Psychological History: No Psychological Hx Reported Smoking Status: Former smoker Past Alcohol Use History: None Reported Past Drug Use History: None Reported - Past Family History Mother Additional Family Medical History / Comment(s): does not know. states was very small Father Family Medical History: No Reported History Additional Family Medical History / Comment(s): patient does not know states was very small General Exam General appearance: alert, in no apparent distress Head exam: Present: atraumatic, normocephalic, normal inspection Eye exam: Present: normal appearance, PERRL, EOMI. Absent: scleral icterus, conjunctival injection, periorbital swelling ENT exam: Present: normal exam, mucous membranes moist Neck exam: Present: normal inspection, full ROM Neurological exam: Present: alert, CN II-XII intact Expanded Patient oriented to: Present: person, place. Absent: time Speech: Present: fluid speech Motor strength exam: RUE: 5, LUE: 5, RLE: 5, LLE: 5 Psychiatric exam: Present: flat affect Skin exam: Present: warm, dry, intact, normal color. Absent: rash Course Vital Signs 05/22/22 05/22/22 05/22/22 19:49 20:06 20:52 Temperature 98.1 F 98.1 F 98.4 F Pulse Rate 64 64 Pulse Rate [ 56 L Right Supine [employer] ] Respiratory 16 16 18 Rate Blood Pressure 160/72 160/72 Blood Pressure 176/83 [Right Arm Sitting] Blood Pressure 154/83 [Right Arm Standing] Blood Pressure 169/80 [Right Arm Supine] O2 Sat by Pulse 98 98 98 Oximetry Medical Decision Making - Medical Decision Making 76-year-old female presenting to the emergency room via EMS with complaints of sudden onset of a headache along with visual disturbance and l ightheadedness. Symptoms now resolving with resolution of lightheadedness and visual disturbances headache now mild at this time she denies any analgesic need. Due to past medical history along with poor historian status and dementia will check orthostatic blood pressures, EKG along with CT of the brain. Will check CBC and BMP along with COVID swab. CT of the brain negative for acute intracranial abnormalities are is likely progression of her minimal microvascular ischemia indicating probable p rogression of her dementia attributing to her symptoms. CBC and BMP without significant anomalies. Covid swab negative. EKG shows sinus rhythm. Orthostatic blood pressures without significant deviation. Findings discussed with patient and patient's daughter who is at the bedside and her caregiver since her worsening of dementia. Encouraged medication compliance with blood pressure and diabetic medications. Will discharge home with follow-up with her primary care provider. Encouraged maintaining safety. Case discussed with Dr. Cho. - Lab Data Result diagrams: 05/22/22 20:12 05/22/22 20:12 Lab Results 05/22/22 05/22/22 05/22/22 Range/Units 20:12 20:12 20:39 WBC 4.3 (3.8-10.6) k/uL RBC 4.46 (3.80-5.40) m/uL Hgb 13.4 (11.4-16.0) gm/dL Hct 39.8 (34.0-46.0) % MCV 89.4 (80.0-100.0) fL MCH 30.1 (25.0-35.0) pg MCHC 33.6 (31.0-37.0) g/dL RDW 12.8 (11.5-15.5) % Plt Count 235 (150-450) k/uL MPV 8.1 Neutrophils % 52 % Lymphocytes % 37 % Monocytes % 6 % Eosinophils % 2 % Basophils % 1 % Neutrophils # 2.3 (1.3-7.7) k/uL Lymphocytes # 1.6 (1.0-4.8) k/uL Monocytes # 0.3 (0-1.0) k/uL Eosinophils # 0.1 (0-0.7) k/uL Basophils # 0.1 (0-0.2) k/uL Sodium 136 L (137-145) mmol/L Potassium 3.6 (3.5-5.1) mmol/L Chloride 100 (98-107) mmol/L Carbon Dioxide 24 (22-30) mmol/L Anion Gap 12 mmol/L BUN 14 (7-17) mg/dL Creatinine 0.69 (0.52-1.04) mg/dL Est GFR (CKD-EPI)AfAm >90 (>60 ml/min/1.73 sqM) Est GFR (CKD-EPI)NonAf 86 (>60 ml/min/1.73 sqM) Glucose 108 H (74-99) mg/dL Calcium 9.3 (8.4-10.2) mg/dL Coronavirus (PCR) Not Detected (Not Detectd) - EKG Data EKG Comments: Sinus rhythm, ventricular rate 60 bpm, CO interval 141 ms, QRS duration 80 ms, QT/QTC 406/406 ms PRT axes 14, 4, 15 - Radiology Data Radiology results: report reviewed, image reviewed CT brain without contrast shows no acute intracranial abnormalities. Minimal microvascular ischemia. This is progression compared to the old exam. Disposition Clinical Impression: Headache Disposition: HOME SELF-CARE Condition: Stable Instructions (If sedation given, give patient instructions): Acute Headache (ED), Dementia (ED) Additional Instructions: Please follow-up with your primary care provider. Please continue to maintain safety. Please continue to take your blood pressure and diabetic medications as prescribed by your primary care provider. Please return to the Emergency Department if symptoms worsen or any other concerns. Is patient prescribed a controlled substance at d/c from ED?: No Referrals: None,Stated [Primary Care Provider] - 1-2 days Time of Disposition: 22:25
[2022-05-22 20:54] VITALS: BP 169/80; PULSE 56; RESP 18; TEMP 98.4
--- NOTE | 2022-05-22 22:06 | CT ---
EXAMINATION TYPE: CT brain wo con DATE OF EXAM: 05/22/2022 COMPARISON: 05/29/2011 HISTORY: headache, dizziness CT DLP: 1121.4 mGycm Automated exposure control for dose reduction was used. There is some cerebral cortical atrophy. There is mild hypodensity in the periventricular white matte r. There is no mass effect nor midline shift. No evidence of intracranial hemorrhage. Calvarium is in tact. There is normal aeration of the mastoid sinuses. IMPRESSION: No acute intracranial abnormality.. Minimal microvascular ischemia. This is progressed compared to e old exam
== END 2022-05-22 22:45 | disposition home or self-care (01) ==
LOC: EC 19:43
DX: R51.9 Headache, unspecified (principal); I25.10 Atherosclerotic heart disease of native coronary artery without angina pectoris; E11.9 Type 2 diabetes mellitus without complications; I10 Essential (primary) hypertension; I25.2 Old myocardial infarction; Z87.891 Personal history of nicotine dependence; Z79.84 Long term (current) use of oral hypoglycemic drugs; Z79.899 Other long term (current) drug therapy; Z20.822 Contact with and (suspected) exposure to COVID-19
CPT/HCPCS: 36415; 70450; 80048; 85025; 87635; 93005; 99284

== ENCOUNTER 2022-08-03 09:26 | Emergency (ER) | payer MEDICARE, OTHER ==
[2022-08-03 09:46] VITALS: BP 136/73; PULSE 58; RESP 18; TEMP 98
[2022-08-03] MEDS ORDERED: KETOROLAC 15 MG/ML 1 ML VIAL IM STA (11:19)
[2022-08-03] MEDS ORDERED: ORPHENADRINE 30 MG/ML 2 ML VIAL IM STA (11:19)
--- NOTE | 2022-08-03 11:24 | ED ---
Back Pain HPI - General Chief Complaint: Back Pain/Injury Stated Complaint: Back Pain Time Seen by Provider: 08/03/22 11:12 Source: patient, RN notes reviewed, old records reviewed Limitations: no limitations - History of Present Illness Initial Comments: 76-year-old female presents ambulatory to the emergency room complaining of left-sided mid back pain that is worse with bending twisting or palpation. Denies any fevers. Denies any injuries. She states that she has had this type of pain in the past and it resolved on its own. MD Complaint: back pain -: days(s) (2) Similar Symptoms Previously: Yes Place: home Severity scale (1-10): 8 Consistency: constant Improves With: immobilization Worsens With: movement, other (palpation) Associated Symptoms: denies other symptoms - Related Data Home Medications Medication Instructions Recorded Confirmed Diclofenac Sodium [Voltaren Gel] 1 applic TOPICAL BID PRN 06/03/20 09/07/20 Omeprazole 20 mg PO DAILY PRN 06/03/20 09/07/20 lisinopriL [Prinivil] 10 mg PO DAILY 06/03/20 09/07/20 metFORMIN HCL [Glucophage] 500 mg PO AC-BID 06/03/20 09/07/20 Ciprofloxacin Ophth Soln [Cipro 1 drops LEFT EYE TID 09/07/20 09/07/20 0.3% Ophth Soln] Metoprolol Tartrate [Lopressor] 12.5 mg PO DAILY 09/07/20 09/07/20 Previous Rx's Medication Instructions Recorded Isosorbide Mononitrate ER [Imdur] 30 mg PO DAILY #90 tab.er.24h 06/04/20 Atorvastatin [Lipitor] 80 mg PO DAILY #90 tab 06/13/20 Clopidogrel [Plavix] 75 mg PO DAILY #90 tablet 06/13/20 Nitroglycerin Sl Tabs [Nitrostat] 0.4 mg SUBLINGUAL Q5M PRN #25 tab 06/13/20 Cyclopentolate 1% Ophth Soln 1 drops LEFT EYE TID 7 Days #3 ml 09/07/20 [Cyclogyl 1% Ophth Soln] Moxifloxacin [Vigamox 0.5%] 1 drop LEFT EYE Q2H 7 Days #3 ml 09/07/20 Prednisolone Acetate/Pf 1 drop LEFT EYE Q2H 7 Days #3 ml 09/07/20 [Prednisolone Acet 1% Eye Drop] Cephalexin [Keflex] 500 mg PO BID 7 Days #14 cap 08/03/22 Allergies Allergy/AdvReac Type Severity Reaction Status Date / Time No Known Allergies Allergy Verified 08/03/22 09:45 Review of Systems ROS Statement: Those systems with pertinent positive or pertinent negative responses have been documented in the HPI. ROS Other: All systems not noted in ROS Statement are negative. Past Medical History Past Medical History: Coronary Artery Disease (CAD), Chest Pain / Angina, Demen tia, Diabetes Mellitus, Hyperlipidemia, Hypertension, [place]ocardial Infarction ([place]) Additional Past Medical History / Comment(s): PATIENT UNSURE IF HAD [place] Last Myocardial Infarction Date:: 1999 History of Any Multi-Drug Resistant Organisms: None Reported Past Surgical History: Heart Catheterization, Hysterectomy Additional Past Surgical History / Comment(s): stent rca 2001, ptba rca 2113, stent rca by CORY Arnold 06/09/2020, catract Past Anesthesia/Blood Transfusion Reactions: No Reported Reaction Past Psychological History: No Psychological Hx Reported Smoking Status: Former smoker Past Alcohol Use History: None Reported Past Drug Use History: None Reported - Past Family History Mother Additional Family Medical History / Comment(s): does not know. states was very small Father Family Medical History: No Reported History Additional Family Medical History / Comment(s): patient does not know states was very small General Exam Limitations: no limitations General appearance: alert, in no apparent distress Head exam: Present: atraumatic Neck exam: Present: full ROM. Absent: tenderness, meningismus Respiratory exam: Absent: respiratory distress, accessory muscle use Cardiovascular Exam: Present: bradycardia GI/Abdominal exam: Present: soft Extremities exam: Present: full ROM, normal capillary refill. Absent: tenderness, pedal edema, calf tenderness Back exam: Present: muscle spasm, paraspinal tenderness (Left thoracic). Absent: CVA tenderness (R), CVA tenderness (L), vertebral tenderness, rash noted Expanded Back exam: Absent: saddle anesthesia Back exam: Negative Straight Leg Raising: Left, Right Neurological exam: Present: alert, oriented X3, normal gait Psychiatric exam: Present: normal affect, normal mood Skin exam: Present: warm, dry, normal color. Absent: cyanosis, diaphoretic, petechiae, pallor Course Vital Signs 08/03/22 09:43 Temperature 98 F Pulse Rate 58 L Respiratory 18 Rate Blood Pressure 136/73 O2 Sat by Pulse 99 Oximetry Medical Decision Making - Medical Decision Making Patient presents with sided mid back pain for the past 2 days worse with movement or bending. Denies any fevers, no nausea vomiting or diarrhea. Denies any dysuria. She was given Norflex and Toradol with some relief. Urinalysis shows greater than 182 white blood cells and large leukocyte esterase. No nitrates or bacteria noted. Concern for pyelonephritis however patient states that she feels better and needs to leave the hospital for family matter. Patient was encouraged to stay for further testing. She denies any dysuria. No abdominal pain. No fevers. Urine was sent for culture. She was given antibiotics in the emergency room and a prescription for Keflex. She was encouraged to return to the emergency room today for further workup or follow up with her primary care doctor tomorrow. She states that she is unable to stay will follow up with her primary care doctor this week she was given a prescription for antibiotics in the emergency room. Case discussed with Dr. Cho. - Lab Data Lab Results 08/03/22 Range/Units 11:27 Urine Color Yellow Urine Appearance Turbid H (Clear) Urine pH 6.0 (5.0-8.0) Ur Specific [place] 1.021 (1.001-1.035) Urine Protein 1+ H (Negative) Urine Glucose (UA) Negative (Negative) Urine Ketones Negative (Negative) Urine Blood Small H (Negative) Urine Nitrite Negative (Negative) Urine Bilirubin Negative (Negative) Urine Urobilinogen 4.0 (<2.0) mg/dL Ur Leukocyte Esterase Large H (Negative) Urine RBC 10 H (0-5) /hpf Urine WBC >182 H (0-5) /hpf Urine WBC Clumps Few H (None) /hpf Ur Squamous Epith Cells 3 (0-4) /hpf Urine Mucus Many H (None) /hpf Disposition Clinical Impression: UTI (urinary tract infection), Back pain, Acute flank pain Disposition: HOME SELF-CARE Condition: Good Instructions (If sedation given, give patient instructions): Flank Pain (ED), Urinary Tract Infection in Older Adults (ED) Additional Instructions: You should stay in the emergency room and have further testing to rule out infection of your kidney. This type of infection can cause damage to your kidney and other complications including sepsis. You are at high risk related to your history of diabetes and heart disease. If you must leave, take antibiotics as prescribed. Increase your fluid intake. Return to the emergency room today or follow-up with the primary care doctor tomorrow. It is important to return to the emergency room with a new or concerning symptoms including increased pain, fevers or persistent nausea vomiting. Prescriptions: Cephalexin [Keflex] 500 mg PO BID 7 Days #14 cap Is patient prescribed a controlled substance at d/c from ED?: No Referrals: None,Stated [Primary Care Provider] - 1-2 days Time of Disposition: 12:16
[2022-08-03 11:46] LABS: Appearance,Urine Turbid (Clear); Bilirubin,Urine Negative (Negative); Blood,Urine Small (Negative); Color,Urine Yellow; Glucose,Urine (UA) Negative (Negative); Ketones,Urine Negative (Negative); Leukocyte Esterase,Urine Large (Negative); Mucus,Urine Many /hpf; Nitrite,Urine Negative (Negative); Protein,Urine 1+ (Negative); RBC,Urine 10 /hpf (0-5); Specific Gravity,Urine 1.021 (1.001-1.035); Squamous Epithelial Cell,Urine 3 /hpf (0-4); WBC,Urine >182 /hpf (0-5)
[2022-08-03] MEDS ORDERED: CEPHALEXIN 500 MG CAP PO STA (12:16)
== END 2022-08-03 12:53 | disposition home or self-care (01) ==
LOC: EC 09:26
DX: N39.0 Urinary tract infection, site not specified (principal); I25.10 Atherosclerotic heart disease of native coronary artery without angina pectoris; E11.9 Type 2 diabetes mellitus without complications; I25.2 Old myocardial infarction; I10 Essential (primary) hypertension; Z87.891 Personal history of nicotine dependence; Z79.899 Other long term (current) drug therapy; Z79.84 Long term (current) use of oral hypoglycemic drugs
CPT/HCPCS: 99283; 96372; 81001; 87086; J2360; J1885; 87077; 87186

== ENCOUNTER 2022-11-29 14:16 | Emergency (ER) | payer MEDICARE, OTHER ==
[2022-11-29 14:23] VITALS: TEMP 97.9
[2022-11-29] MEDS ORDERED: KETOROLAC 15 MG/ML 1 ML VIAL IVP STA (15:03)
--- NOTE | 2022-11-29 16:32 | XR ---
EXAMINATION TYPE: XR knee complete LT DATE OF EXAM: 11/29/2022 COMPARISON: NONE HISTORY: Knee pain TECHNIQUE: 3 views FINDINGS: There is some calcification of the menisci. There is spurring of the femoral and tibial con dyles. There is spurring on the patella. There is small knee joint effusion. No fracture seen. IMPRESSION: There is osteoarthritis and chondrocalcinosis. No fracture.
--- NOTE | 2022-11-29 16:32 | US ---
EXAMINATION TYPE: US venous doppler duplex LE LT DATE OF EXAM: 11/29/2022 4:18 PM COMPARISON: NONE CLINICAL HISTORY: LLE pain. SIDE PERFORMED: Left TECHNIQUE: The lower extremity deep venous system is examined utilizing real time linear array sonog ronit with graded compression, doppler sonography and color-flow sonography. VESSELS IMAGED: Common Femoral Vein Deep Femoral Vein Greater Saphenous Vein * Femoral Vein Popliteal Vein Small Saphenous Vein * Proximal Calf Veins (* superficial vessels) Left Leg: Negative for DVT. Anechoic mass medial left popliteal fossa 4.3 x 1.7 x 3.2cm IMPRESSION: No evidence of deep vein thrombosis in the left leg. There is popliteal cyst
--- NOTE | 2022-11-29 16:51 | ED ---
Extremity Problem HPI - General Chief complaint: Extremity Problem,Nontraumatic Stated complaint: Knee Pain Time Seen by Provider: 11/29/22 14:48 Source: patient Mode of arrival: wheelchair Limitations: no limitations - History of Present Illness Initial comments: Patient is a 77-year-old female who presents to the emergency department with a chief complaint of knee pain. It started this morning in the back of her left knee. She denies injury. No pain medication yet. She denies fever, chills, nausea, vomiting. Denies history of DVT and PE. Denies blood thinners. No chest pain or SOB - Related Data Home Medications Medication Instructions Recorded Confirmed Diclofenac Sodium [Voltaren Gel] 1 applic TOPICAL BID PRN 06/03/20 09/07/20 Omeprazole 20 mg PO DAILY PRN 06/03/20 09/07/20 lisinopriL [Prinivil] 10 mg PO DAILY 06/03/20 09/07/20 metFORMIN HCL [Glucophage] 500 mg PO AC-BID 06/03/20 09/07/20 Ciprofloxacin Ophth Soln [Cipro 1 drops LEFT EYE TID 09/07/20 09/07/20 0.3% Ophth Soln] Metoprolol Tartrate [Lopressor] 12.5 mg PO DAILY 09/07/20 09/07/20 Previous Rx's Medication Instructions Recorded Isosorbide Mononitrate ER [Imdur] 30 mg PO DAILY #90 tab.er.24h 06/04/20 Atorvastatin [Lipitor] 80 mg PO DAILY #90 tab 06/13/20 Clopidogrel [Plavix] 75 mg PO DAILY #90 tablet 06/13/20 Nitroglycerin Sl Tabs [Nitrostat] 0.4 mg SUBLINGUAL Q5M PRN #25 tab 06/13/20 Cyclopentolate 1% Ophth Soln 1 drops LEFT EYE TID 7 Days #3 ml 09/07/20 [Cyclogyl 1% Ophth Soln] Moxifloxacin [Vigamox 0.5%] 1 drop LEFT EYE Q2H 7 Days #3 ml 09/07/20 Prednisolone Acetate/Pf 1 drop LEFT EYE Q2H 7 Days #3 ml 09/07/20 [Prednisolone Acet 1% Eye Drop] Cephalexin [Keflex] 500 mg PO BID 7 Days #14 cap 08/03/22 Ibuprofen [Motrin] 600 mg PO Q8HR PRN #30 tab 11/29/22 Allergies Allergy/AdvReac Type Severity Reaction Status Date / Time No Known Allergies Allergy Verified 11/29/22 14:23 Review of Systems ROS Statement: Those systems with pertinent positive or pertinent negative responses have been documented in the HPI. ROS Other: All systems not noted in ROS Statement are negative. Past Medical History Past Medical History: Coronary Artery Disease (CAD), Chest Pain / Angina, Dementia, Diabetes Mellitus, Hyperlipidemia, Hypertension, Myocardial Infarction ([place]) Additional Past Medical History / Comment(s): PATIENT UNSURE IF HAD [place] Last Myocardial Infarction Date:: 1999 History of Any Multi-Drug Resistant Organisms: None Reported Past Surgical History: Heart Catheterization, Hysterectomy Additional Past Surgical History / Comment(s): stent rca 2001, ptba rca 2113, stent rca by CORY Arnold 06/09/2020, catract Past Anesthesia/Blood Transfusion Reactions: No Reported Reaction Past Psychological History: No Psychological Hx Reported Smoking Status: Former smoker Past Alcohol Use History: None Reported Past Drug Use History: None Reported - Past Family History Mother Additional Family Medical History / Comment(s): does not know. states was very small Father Family Medical History: No Reported History Additional Family Medical History / Comment(s): patient does not know states was very small General Exam Limitations: no limitations General appearance: alert, in no apparent distress Head exam: Present: atraumatic, normocephalic, normal inspection Respiratory exam: Present: normal lung sounds bilaterally. Absent: respiratory distress, wheezes, rales, rhonchi, stridor Cardiovascular Exam: Present: regular rate, normal rhythm, normal heart sounds. Absent: systolic murmur, diastolic murmur, rubs, gallop, clicks Extremities exam: Present: other (small fluid filled mass in posterior knee concerning for cyst no overlying erythema, warmth, blanching. DP 2+. Sensation intact. Full ROM) Neurological exam: Present: alert, oriented X3, CN II-XII intact Psychiatric exam: Present: normal affect, normal mood Course Vital Signs 11/29/22 11/29/22 11/29/22 14:20 14:50 17:49 Temperature 97.9 F 97.9 F Pulse Rate 70 64 78 Respiratory 20 16 Rate Blood Pressure 118/71 120/78 126/80 O2 Sat by Pulse 99 99 Oximetry Medical Decision Making - Medical Decision Making Was pt. sent in by a medical professional or institution (JOSSELYN Hebert, [employer] ENGINEER CHIEF, urgent care, hospital, or retirement...) When possible be specific @ -[No] Did you speak to anyone other than the patient for history (EMS, parent, family, police, friend...)? What history was obtained from this source @ -[No] Did you review nursing and triage notes (agree or disagree)? Why? @ -[I reviewed and agree with nursing and triage notes] Were old charts reviewed (outside hosp., previous admission, EMS record, old EKG, old radiological studies, urgent care reports/EKG's, retirement records)? Report findings @ -[No old charts were reviewed] Differential Diagnosis (chest pain, altered mental status, abdominal pain women, abdominal pain men, vaginal bleeding, weakness, fever, dyspnea, syncope, headache, dizziness, GI bleed, back pain, seizure, CVA, palpatations, mental health)? @ -popliteal cyst, DVT, cellulitis, knee fracture EKG interpreted by me (3pts min.). @ -[As above] X-rays interpreted by me (1pt min.). @ -[None done] CT interpreted by me (1pt min.). @ -[None done] U/S interpreted by me (1pt. min.). @ -No. Ultrasound report negative for DVT it does show a popliteal cyst. What testing was considered but not performed or refused? (CT, X-rays, U/S, labs)? Why? @ -[None] What meds were considered but not given or refused? Why? @ -[None] Did you discuss the management of the patient with other professionals (professionals i.e. JOSSELYN Hebert, [employer]ER CHIEF, lab, RT, psych nurse, social insurance adviser, rand maker, teacher, sergeant of officers, assistant case manager)? Give summary @ -[No] Was smoking cessation discussed for >3mins.? @ -[No] Was critical care preformed (if so, how long)? @ -[No] Were there social determinants of health that impacted care today? How? (Homelessness, low income, unemployed, alcoholism, drug addiction, transportation, low edu. Level, literacy, decrease access to med. care, [facility], rehab)? @ -[No] Was there de-escalation of care discussed even if they declined (Discuss DNR or withdrawal of care, Hospice)? DNR status @ -[No] What co-morbidities impacted this encounter? (DM, HTN, Smoking, COPD, CAD, Cancer, CVA, ARF, Chemo, Hep., AIDS, mental health diagnosis, sleep apnea, morbid obesity)? @ -[None] Was patient admitted / discharged? Hospital course, mention meds given and route, prescriptions, significant lab abnormalities, going to OR and other pertinent info. @ -Patient presenting with pain in her posterior left knee. No injury. No chest pain or shortness of breath. No history of DVT. DVT reveals popliteal cyst. Pain controlled left knee wrapped with Suhas bandage. Patient to continue compression and elevation at home. She will follow-up with primary care provider. Pt discharged with Motrin. Undiagnosed new problem with uncertain prognosis? @ -[No] Drug Therapy requiring intensive monitoring for toxicity (Heparin, Nitro, Insulin, Cardizem)? @ -[No] Were any procedures done? @ -[No] Diagnosis/symptom? @ -left popliteal cyst Acute, or Chronic, or Acute on Chronic? @ -acute Uncomplicated (without systemic symptoms) or Complicated (systemic symptoms)? @ -uncomplicated Side effects of treatment? @ -[No] Exacerbation, Progression, or Severe Exacerbation? @ -[No] Poses a threat to life or bodily function? How? (Chest pain, [place], [place], pneumonia, PE, COPD, DKA, ARF, appy, cholecystitis, CVA, Diverticulitis, Homicidal, Suic idal, threat to staff... and all critical care pts) @ -[No] Dr. Damian is my attending Disposition Clinical Impression: Unruptured cyst of left popliteal space Disposition: HOME SELF-CARE Condition: Good Instructions (If sedation given, give patient instructions): [place] Cyst (ED) Additional Instructions: Keep the Suhas bandage on for compression and apply warm compress. Take medication as directed. Follow-up with primary care provider in one to 2 days. Return to the emergency department if you experience new, concerning, or worsening symptoms. Prescriptions: Ibuprofen [Motrin] 600 mg PO Q8HR PRN #30 tab PRN Reason: Pain Is patient prescribed a controlled substance at d/c from ED?: No Referrals: None,Stated [Primary Care Provider] - 1-2 days Time of Disposition: 16:51
[2022-11-29 17:50] VITALS: BP 126/80; PULSE 78; RESP 16
== END 2022-11-29 17:50 | disposition home or self-care (01) ==
LOC: EC 14:16
DX: M71.22 Synovial cyst of popliteal space [Baker], left knee (principal); I25.10 Atherosclerotic heart disease of native coronary artery without angina pectoris; E11.9 Type 2 diabetes mellitus without complications; I10 Essential (primary) hypertension; E78.5 Hyperlipidemia, unspecified; I25.2 Old myocardial infarction; Z87.891 Personal history of nicotine dependence; Z79.899 Other long term (current) drug therapy
CPT/HCPCS: 73562; 93971; 99284; 96374; J1885